=== PATIENT | female | born 1955 | race Caucasian/White ===

== ENCOUNTER → 2017-12-20 11:30 | Outpatient (CLI) | payer MEDICAID, SELFPAY | PROVIDERS: PCP Family Medicine; Visit Provider Family Medicine | DX: E11.9 Type 2 diabetes mellitus without complications (principal) | CPT/HCPCS: 36415; 83036 ==

== ENCOUNTER 2018-01-10 13:00 | Outpatient (RCR) | payer MEDICAID, SELFPAY ==
--- NOTE | 2018-01-02 13:00 | IE_ITS ---
Date: January 02, 2018 Referring: Will Gunn MD M.D. Diagnosis: Low back pain, shoulder pain P.T. Diagnosis: SUBJECTIVE: History of Present Illness: Bridgette is in attendance for today's visit with her sister in law Patti. Patient's primary complaint is that of R shoulder pain, posteriorly. Insidious onset. She reports she started using a standard walker approximately 3 months ago secondary to 2 falls in the last 6 months. She has not fallen since she has been using the walker. She also complains of chronic LBP multiple year history, worse standing and walking, better sitting. Sitting and heat relieves her symptoms. She denies any radiculopathy. Also complains of bilateral knee pain L worse than R with 2 surgical interventions for scopes with history of cortisone injections. Her primary complaint is R shoulder pain. Pain Ratin/10 currently at rest in sitting for R shoulder. 8/10 at worse in last week with AROM. Back pain in sitting 0/10, she reports this increases to 5/10 throughout the day when she is performing standing for more than 5 mins. Pain Location: Across the lumbar spine with no buttock or radicular symptoms. Knee pain along medial knee joint line bilaterally L worse than R, as well medial buckley pain. This is bilaterally R worse than L. Prior Level of Function: Quite sedentary with decreased functional mobility and easily fatigues with overall poor conditioning. Current Level of Function: Unable to perform self care activities such as washing her hair with R hand, fastening her bra, donning/doffing plant puller shirts and sweaters, night time pain affecting her sleep pattern with regards to R shoulder. She tends to sleep in L sidelying positions, but irregardless, this does aggravate her shoulder pain. Pain with lift and carrying. Pain with prolonged standing greater than 5 mins with regards to low back pain, pain with meal preparation. Previous Treatment: None. Social: Lives at [facility], independent living, but does have a worker come into her apartment to help clean. Comorbidities: Diabetes, high blood pressure, EPILEPSY, benign brain tumor, patient is mentally impaired. Falls in the last year: ____ No __X__Yes - How many? __2__ - (if over 2, balance SM needs to be completed) Reported hospitalizations in the last year - __X__ No ____ Yes - Dates of admission/reason: Medications: Refer to her list in EMR Quality of Life: ____ Excellent __X__ Good ____ Fair ____ Poor Standardized Measures: DASH score: __31%__ MOLBPDQ: __46%__ OBJECTIVE: Posture: Morbidly obese female. Adequate lumbar lordosis and level iliac crest. She does tend to assume a forwardly flexed posture of thoracic spine with mild kyphosis and protracted scapula with forward head. Observation: (behavior, atrophy, skin color, etc.) Patient presents with labored breathing after performing simple transfers on/off the plinth. This appears to be quite an effort for her. No significant swelling, mild genu valgus bilaterally. Gait: Independent with use of standard walker. She required verbal cues for correct use of the walker to avoid advancing and resting on its posterior 2 legs and tipping it forward to get 4 points of contact. Also had to lower this 2 settings as it was excessively high for her causing excessive elbow flexion and shoulder extension. We did trial a front wheeled walker, which was much easier for her to maneuver with, as she was able to walk with good jesu and step through pattern. Palpation: Hypersensitive with palpation in all locations of testing. Most notable posterior cuff, infraspinatus, teres minor on the R, (-) L. (+) pain with palpation anterior cuff bilaterally R greater than L. Pain with palpation throughout bilateral medial knee joint line and superior medial tibia, spanning down along the posterior tib bilaterally, painfree with palpation through lumbar paraspinals and buttock musculature. ROM: Cervical spine ROM WFL with no reproduction of shoulder pain. Rotation 65 -70 degrees bilaterally, flexion 35, extension 15-20, sidebending hypomobile at 15 degrees bilaterally. L-spine AROM forward flexion 6 fingertips to floor painfree, extension 15 degrees with mild pressure pain reported in central low back. Sidebending WNL bilaterally painfree. Rotation 70 degrees in both directions with mild pain at end range. GH joint ROM flexion 150 L, 90 degrees R with scapular hike and pain, AA 165 L, 120 R, passively 130 R with pain at end range. IR S1 R with pain, T8 L painfree , ER T1 actively L. The patient reaches occiput actively R, passive to 70 with pain at end range. Elbow flexion/extension WNL. Knee flexion 105 degrees R, 110 L, AA 110-115 respectively. Strength: Gross functional strength unable to perform sit to stand transfer without use of hands on arm rest, 4-/5 bilateral quad and hamstring. Hip flexion 4/5 R, 4+/5 L. GH joint strength IR 4+/5 bilaterally with pain on the R, ER 4-/5 R with pain, 4 +/5 L painfree. Flexion/abduction 3+/5 R with pain, 4/5 L painfree. Bicep/tricep 4/5 bilaterally. Neuro: Patient reports decreased sensation throughout bilateral stocking glove distribution likely stemming from diabetic neuropathy. Reports UE sensation WNL to light touch. Balance: (-) Romberg, Timed Up and Go with use of standard walker 16.8 seconds. Special Tests: (+) empty can, (-) Hawkin's Ross, (+) Hornblower's, (-) belly compression, (-) Speeds', (-) dural tension testing with slump test and SLR, (-) quadrant compression testing lumbar spine. Treatment: IE: [id number] Therapeutic procedures ([id number]). Patient education in a home program focusing on some passive pendulum exercises and scapular retraction for postural correction. She will continue use of heat as this has been offering symptom reduction. Direct treatment time: 60 mins Total treatment time: 60 mins ASSESSMENT: Patient is a 62 year-old female, referred for PT services with the diagnosis of chronic LBP and R shoulder pain. Patient presents with clinical signs and symptoms consistent with posterior cuff tendinitis as well as likely osteoarthritis of bilateral knees and DJD/DDD of lumbar spine with poor core stability, as demonstrated by the following impairment level findings: Impaired joint mobility, motor function, muscle performance and ROM associated with impaired posture, connective tissue dysfunction and localized inflammation. Impairments are contributing to the following functional limitations: Unable to perform self care activities such as washing her hair with R hand, fastening her bra, donning/doffing plant puller shirts and sweaters, night time pain affecting her sleep pattern with regards to R shoulder. She tends to sleep in L sidelying positions, but irregardless, this does aggravate her shoulder pain. Pain with lift and carrying. Pain with prolonged standing greater than 5 mins with regards to low back pain, pain with meal preparation. Patient is a good PT candidate for resolution of posterior cuff pain. Do feel she would be an excellent candidate for aquatic therapy for overall strengthening and conditioning, which she is in agreement with, once we get her shoulder symptoms a little more manageable. Would like to progress with postural correction exercises along with core stabilization and general LE strengthening. Patient is assessed as: ____ Low 10461 __X__ Moderate 17710 ____ High 47295 complexity, based on the following: History: (list): x See comorbidities and social history. Examination: (list): x See above for functional limitations and impairments. Presentation: Stable . x Evolving Unstable Decision-Making: Low complexity X Moderate complexity High complexity % Disability based on standardized measures. __X__ Patient requires skilled PT intervention to remediate the above functional limitations to return to: __X__ Improve QOL ____ Other: Prognosis: ____ Excellent ____ Good ___X_ Fair ____ Poor STG: __4__ weeks. 1: Decrease pain by 25%. 2: Patient independent with HEP. 3: Improve R GH joint flexion to greater than 120 degrees. LTG: __12__ weeks. 1: Patient independent in a self maintenance program 2: Decrease DASH to less than 20%. PLAN: Patient to be seen 2 x per week, for 12 weeks, adjusting frequency of visits per patient symptoms and response to treatment. Treatment to include: Thermal ultrasound to posterior cuff followed by Manual therapy - [id number]: R GH joint lateral distraction, caudal glides, soft tissue mobilization to the posterior cuff, scap stab and rotator cuff strengthening, postural correction. Continue use of moist heat post treatment. Also consider use of KT tape for rotator cuff pathology. Patient is in agreement with this plan and will be discharged when goals have been met. Thank you for this referral. Please do not hesitate to contact me with any questions or concerns regarding this patient's plan of care.
--- NOTE | 2018-01-07 14:37 | PTTR_ITS ---
DATE: 01/07/18 SUBJECTIVE: Bridgette states that she has yet to notice any improvements. She continues to c/o shld pain. OBJECTIVE: Manual therapy: ([id number]). mobilizations of right Gh jt including posterior and inferior glides, caudal and lateral distractions, P/AAROM. CFM over anterior and posterior cuffs. STM t /o upper trap, levator scap and posterior shld including PRT's of infraspinatus and teres region. Myofascial telescoping t/o anterior and posterior shld. * x HEP review: * x Ultrasound - (x 8 mins) - [id number]: to 50% pulsed to posterior cuff at 1.1 w/cm2, 3 MHZ. She ended with MHP to shld x 10 min in seated position. Direct treatment time: 35 min Total treatment time: 45 min.
--- NOTE | 2018-01-10 09:22 | PTTR_ITS ---
DATE: 01/10/18 SUBJECTIVE: Bridgette enters the clinic today c/o chest pain that radiates to her upper back/ right periscapular region. She admitted to eating her lunch really fast, as her ride was ready to pick her up and she was running late. She continues to c/o constant right shld pain. OBJECTIVE: Manual therapy: ([id number]). STM t/o right upper trap, levator scap and periscapular region. CFM over posterior cuff. I also worked into her deltoid region. She went into semi reclined position and received mobilizations of right GH jt including distractions, inferior and posterior glides as well as P/AAROM. CFM over anterior cuff. She performed some scap retraction 10x 5 sec. I then applied kinesiotape for RTC using 2 Y strips. She ended with MHP x 10 min. Vitals monitored and recorded on flowsheet. Her BP was 147/69. Complete resolution of chest pain once up moving around. Seems to have some sort of indigestion/ diaphragm spasm. Direct treatment time: 30 min Total treatment time: 40 min
--- NOTE | 2018-01-17 15:26 | NT_ITS ---
01/17/18 No show for today's scheduled PT appointment. Lisa Bermudez, [employer]ER
== END 2018-01-18 23:59 | disposition home or self-care (01) ==
LOC: PT 13:00
PROVIDERS: PCP Family Medicine; Referring Provider Family Medicine; Visit Provider Family Medicine
DX: M25.511 Pain in right shoulder (principal); M54.5 Low back pain
CPT/HCPCS: 97035; 97110; 97140; 97162

== ENCOUNTER 2018-07-12 10:12 | Outpatient (CLI) | payer MEDICAID, SELFPAY ==
[2018-07-12 13:27] LABS: BUN 24 mg/dL (7-18); CREATININE 1.13 mg/dL (0.55-1.02); Calcium 8.9 mg/dL (8.5-10.1); Chloride 107 mmol/L (98-107); Estimated GFR 48.48 (mL/min/1.73m2); Glucose 103 mg/dL (70-100); Potassium 4.4 mmol/L (3.5-5.1); Sodium 142 mmol/L (136-145)
[2018-07-12 13:32] LABS: Hemoglobin A1C 6.4 % (4.5-6.2)
== END 2018-07-12 10:32 ==
PROVIDERS: PCP Family Medicine; Visit Provider Family Medicine
DX: E11.65 Type 2 diabetes mellitus with hyperglycemia (principal); I10 Essential (primary) hypertension
CPT/HCPCS: 36415; 80048; 83036

== ENCOUNTER 2019-04-28 10:20 | Outpatient (CLI) | payer MEDICARE, MEDICAID, SELFPAY ==
[2019-04-28 11:41] LABS: Hemoglobin A1C 6.4 % (4.5-6.2)
[2019-04-28 13:10] LABS: Anion Gap 13.5 mmol/L (3-11); BUN 23 mg/dL (7-18); CO2 22.5 mmol/L (21.0-32.0); CREATININE 1.33 mg/dL (0.55-1.02); Calcium 8.6 mg/dL (8.5-10.1); Calculated LDL 149 mg/dL; Chloride 107 mmol/L (98-107); Cholesterol 249 mg/dL (<200); Estimated GFR 40.04 (mL/min/1.73m2); Glucose 86 mg/dL (74-106); HDL Cholesterol 71 mg/dL (40-60); Potassium 4.6 mmol/L (3.5-5.1); Sodium 143 mmol/L (136-145); Triglyceride 147 mg/dL (<150)
== END 2019-04-28 10:40 ==
PROVIDERS: PCP Family Medicine; Visit Provider Family Medicine
DX: I10 Essential (primary) hypertension (principal); E11.9 Type 2 diabetes mellitus without complications
CPT/HCPCS: 36415; 80048; 80061; 83036

== ENCOUNTER 2019-06-30 01:17 | Outpatient (CLI) | payer MEDICARE, MEDICAID, SELFPAY ==
--- NOTE | 2019-06-30 09:10 | DI.RAD_ITS ---
EXAM: XR THORACIC SPINE COMPLETE INDICATION: Thoracic spine pain, M54.6. COMPARISON: CHEST 2 VIEWS PA,LAT from 02/08/2017 CHEST 2 VIEWS PA,LAT from 02/08/2017 TECHNIQUE: 2D digital imaging was performed. FINDINGS: No compression fractures are seen. There are endplate osteophytes seen in the mid to lower thoracic spine. There is also some disc space narrowing at these levels. The visualized portions of the lung cary appear clear. IMPRESSION: Degenerative changes in the mid to lower thoracic spine.
--- NOTE | 2019-06-30 09:46 | DI.MAMMO_ITS ---
EXAM: MG MAMMO SCREENING CLINICAL HISTORY: screening, Z12.39. TECHNIQUE: Full field digital CC and MLO mammographic images were obtained with 3D tomosynthesis and utilizing computer aided detection (CAD). COMPARISON: . 2015 FINDINGS: Breast Density - Category A - Almost entirely fatty Masses/Architectural Distortion: None seen. Microcalcifications: No suspicious pleomorphic-type calcifications are seen. Skin Thickening/Nipple Retraction: None. Axilla: Unremarkable. IMPRESSION: 1. BI-RADS category 1, negative. No significant interval change with no specific features of maligna ncy noted. 2. Unless there is more urgent need, screening mammography is recommended, as per [place] [employer] guidelines. A negative radiographic report should not delay biopsy if a dominant or clinically suspicious mass is present. Up to ten percent of cancers are not identified on mammography. A negative report may reinforce clinical impression. Adenosis and dense breasts may obscure an underlying neoplasm. False positive reports average 6 to 10%. Patient will receive a letter notifying them of these results.
== END 2019-06-30 01:37 ==
PROVIDERS: PCP Family Medicine; Visit Provider Family Medicine
DX: Z12.31 Encounter for screening mammogram for malignant neoplasm of breast (principal); M54.6 Pain in thoracic spine; M47.814 Spondylosis without myelopathy or radiculopathy, thoracic region
CPT/HCPCS: 77063; 77067; 72072

== ENCOUNTER 2020-07-01 01:10 | Outpatient (CLI) | payer MEDICARE, MEDICAID, SELFPAY ==
--- NOTE | 2020-07-01 13:26 | DI.MAMMO_ITS ---
EXAM: MAMMO SCREENING CLINICAL HISTORY: screening,z12.39 TECHNIQUE: Mammograms were interpreted according to the usual protocol including computer analysis w [employer] CAD system, tomosynthesis and C-view imaging. COMPARISON: 2014 through 2019 FINDINGS: The breasts are composed of scattered fibroglandular densities, Breast Density category B. No suspicious masses or suspicious microcalcifications are seen. There are stable bilateral benign a ppearing calcifications. No skin thickening or abnormal axillary lymph nodes are seen. There has been no significant change from prior exams. IMPRESSION: BI-RADS Category 2 - Benign Findings Yearly screening mammography is recommended. Breast Density - Category B, scattered fibroglandular densities. A negative radiographic report should not delay biopsy if a dominant or clinically suspicious mass is present. Up to ten percent of cancers are not identified on mammography. A negative report may reinforce clinical impression. Adenosis and dense breasts may obscure an underlying neoplasm. False positive reports average 6 to 10%. Patient will receive a letter notifying them of these results.
== END 2020-07-01 01:11 ==
LOC: DI 01:10
PROVIDERS: PCP Nurse Practitioner; Visit Provider Nurse Practitioner
DX: Z12.31 Encounter for screening mammogram for malignant neoplasm of breast (principal)
CPT/HCPCS: 77063; 77067

== ENCOUNTER 2020-11-30 12:40 | Outpatient (REF) | payer MEDICARE, MEDICAID, SELFPAY ==
[2020-11-30 18:00] LABS: Potassium 5.3 mmol/L (3.5-5.1)
[2020-11-30 18:07] LABS: Hemoglobin A1C 8.5 % (<5.7)
[2020-12-01 20:34] LABS: Calculated LDL 124 mg/dL (<100); Cholesterol 188 mg/dL (<200); HDL Cholesterol 43 mg/dL (40-60); Triglyceride 105 mg/dL (<150)
== END 2020-11-30 12:41 | disposition home or self-care (01) ==
LOC: LBN 12:40
PROVIDERS: PCP Nurse Practitioner; Visit Provider Nurse Practitioner
DX: I10 Essential (primary) hypertension (principal); E11.43 Type 2 diabetes mellitus with diabetic autonomic (poly)neuropathy; K31.84 Gastroparesis
CPT/HCPCS: 80061; 82565; 83036; 84132

== ENCOUNTER 2021-03-14 11:56 | Emergency (ER) | payer MEDICARE, MEDICAID, SELFPAY ==
[2021-03-14 12:02] VITALS: BP 140/44; PULSE 63; RESP 18; TEMP 36.8; O2SAT 97
--- OUTSIDE RECORDS SUMMARY | 2021-03-14 12:06 | XMS_ITS ---
:1955 Author Care Team Providers Name Role Phone [facility] Internal Medicine [phone] [facility] RECORDS OTHER [phone] Allergies Code Code System Name Reaction Severity Status Onset Latex, ? ? Active ? Natural Rubber Medications Name Status Start Date Stop Date ? ? acetazolamide ER 500 mg Active ? Not avai lable capsule,extended release Advair HFA 230 mcg-21 mcg/actuation Active ? Not available aerosol inhaler amlodipine 10 mg tablet Active ? Not avai lable BD Insulin Syringe 1 mL 26 x 1/2 Active ? Not available BD Insulin Syringe Ultra-Fine 1 mL 30 Active ? Not available gauge x 1/2 benzonatate 100 mg capsule Active ? Not a vailable carbamazepine ER 400 mg tablet,extended Completed ? 03/02/2020 release,12 hr fluticasone propionate 50 mcg/actuation Completed ? 03/02/2020 nasal spray,suspension furosemide 40 mg tablet Active ? Not avai lable ipratropium 0.5 mg-albuterol 3 mg (2.5 Active ? Not available mg base)/3 mL nebulization soln Lantus U-100 Insulin 100 unit/mL Active ? Not available subcutaneous solution loperamide 2 mg capsule Active ? Not avai lable losartan 100 mg tablet Active ? Not avail able melatonin 3 mg tablet Active ? Not availa ble metformin 1,000 mg tablet Active ? Not av ailable metoprolol succinate ER 100 mg Active ? N ot available tablet,extended release 24 hr naproxen 500 mg tablet Active ? Not avail able omeprazole 20 mg capsule,delayed Active ? Not available release OneTouch Ultra Blue Test Strip Active ? N ot available polyethylene glycol 3350 17 gram/dose Active ? Not available oral powder potassium chloride ER 10 mEq Active ? Not available tablet,extended release ProAir HFA 90 mcg/actuation aerosol Active ? Not available inhaler Tab-A-Bonilla tablet Active ? Not available trazodone 100 mg tablet Active ? Not avai lable Problems Name Status Onset Date Source ? Polyp of Colon Active ? History Obesity Active ? History Obstructive Sleep Apnea Syndrome Active ? History Hypertensive Disorder Active ? History Asthma Active ? History Chronic Obstructive Lung Disease Active ? History Contact Dermatitis Active ? History Polymyalgia Rheumatica Active ? History Fibromyalgia Active ? History Urinary Incontinence Active ? History Hyperglycemia Due to Type 2 Diabetes Mellitus Active ? History Procedures None recorded. Results Lab Results None recorded. Past Encounters 03/02/2021 Smitha Rios [employer]IRAL BINDER: [address] [phone], Ph. 03/02/2020 Obstructive Sleep Apnea Syndrome Smitha Rios [employer]ER: [address] [phone], Ph. Social History Tobacco Smoking Status Never Smoker Vaccine List None recorded. Plan of Care Reminders Provider Appointments None ? ? recorded. Lab None ? ? recorded. Referral None ? ? recorded. Procedures None ? ? recorded. Surgeries None ? ? recorded. Imaging None ? ? recorded. Vitals 03/02/2020 09:30AM Office 30 Height Weight BMI Blood Pressure 172.72 cm 135.17 kg 45.3 kg/m2 124/80 mm[Hg] 02/20/2019 11:15AM Office 30 Weight Blood Pressure 125.28 kg 122/80 mm[Hg] 10/30/2017 09:00AM Office 30 Height Weight BMI Blood Pressure 172.72 cm 124.38 kg 41.7 kg/m2 140/72 mm[Hg] 08/06/2017 Height Weight Blood Pressure 172.72 cm 122.47 kg 134/70 mm[Hg] 05/15/2017 Height Weight Blood Pressure 172.72 cm 123.83 kg 138/76 mm[Hg] 04/09/2017 Height Weight Blood Pressure 172.72 cm 122.02 kg 140/62 mm[Hg] 10/10/2016 Height Weight Blood Pressure 172.72 cm 127.63 kg 118/72 mm[Hg]
--- NOTE | 2021-03-14 12:12 | W.ED.GENAD ---
Discharge Plan Disposition Patient Disposition: HOME Condition: Stable Discharge Details Clinical Impression: COVID-19 Primary Care Provider: Arlene Simon ED Provider: Donny Olivares Home Meds and New Rx's Prescriptions: Continued triamcinolone acetonide 0.1 % cream 1 applic topical BID Qty: 80 RF: 3 albuterol sulfate [ProAir HFA] 90 mcg/actuation HFA aerosol inhaler 2 puff Inhalation Q6H PRN Qty: 1 RF: 4 fluticasone propionate 50 mcg/actuation spray,suspension 50 mcg NS DAILY Qty: 2 RF: 6 (DME) insulin syringe-needle U-100 [BD Insulin Syringe Ultra-Fine] 1 mL 30 gauge x 1/2 syringe See Dose Instructions .ROUTE .MEDSUPPLY Qty: 100 RF: 4 (DME) lancets [OneTouch UltraSoft Lancets] Misc 1 ea Miscellaneous DAILY Qty: 100 RF: 0 SPACER RF: 0 Advair HFA 8 GM HFA aerosol inhaler 2 puff Inhalation BID Qty: 1 RF: 5 acetazolamide 500 mg capsule, extended release 500 mg PO DAILY Qty: 90 RF: 4 amlodipine [Norvasc] 10 mg tablet 10 mg PO QAM Qty: 90 RF: 4 metformin [Glucophage] 1,000 mg tablet 1,000 mg PO BID Qty: 180 RF: 4 metoprolol succinate 100 mg tablet extended release 24 hr 100 mg PO DAILY Qty: 90 RF: 4 naproxen 500 mg tablet 500 mg PO BID Qty: 180 RF: 4 omeprazole magnesium [Prilosec OTC] 20 mg tablet,delayed release (DR/EC) 20 mg PO DAILY Qty: 90 RF: 4 trazodone 100 mg tablet 100 mg PO QHS Qty: 90 RF: 4 nystatin 100,000 unit/gram powder 1 applic TP BID Qty: 60 RF: 3 polyethylene glycol 3350 [Miralax] 17 gram powder in packet 17 g PO DAILY Qty: 100 RF: 4 (DME) blood sugar diagnostic Strip 1 ea Miscellaneous QID Qty: 200 RF: 4 melatonin 3 mg tablet 3 mg PO HS Qty: 90 RF: 4 Lantus U-100 Insulin 100 unit/mL solution See Rx Instructions subcut BID Qty: 40 RF: 4 losartan 100 mg tablet 100 mg PO DAILY AM RF: 0 [facility]charge [facility]on[facility] (ED) Additional Instructions: Your work-up today including blood work, CTA chest, are consistent with your known COVID-19 disease. You are not requiring any supplemental oxygen. After obtaining informed consent, we provided you with a monoclonal antibody infusion. You are being sent home with a pulse oximeter, be sure to monitor your oxygen levels and return to the ER for new or evolving symptoms, or oxygen levels that are consistently below 90%. Rest, plenty of fluids to avoid dehydration, [id number] medications as directed for symptomatic control please watch for new or worsening symptoms and return to the ER for any concerns. I have placed you on the care management list to help expedite outpatient primary care follow-up. I strongly recommend that you contact your primary care provider tomorrow to discuss your ER visit, ongoing symptoms, and need for outpatient reevaluation. Discharge Data Discharge Date/Time-TO BE ENTERED AT DEPARTURE: 03/14/21 19:31 Medical Decision Making 65-year-old female, multiple comorbidities, known Covid positive, was fully vaccinated, presents to the ER for evaluation of ongoing Covid-like symptoms, home O2 noted to be low today on monitor as well as mild tachycardia after a severe coughing fit. Given her multiple comorbidities and overall presentation, will initiate both a cardiac and Covid work-up, given her tachycardia earlier today we'll go straight to a chest CTA as opposed to obtaining chest x-ray. Clinically she appears well, nontoxic, pulse in the 60s, respirations 18, afebrile, O2 sat 97% on room air. She is able to speak in full sentences and is not requiring supplemental oxygen. Laboratory values reveal a white blood cell count of 6.67 hemoglobin 9.2 hematocrit 32.2. This is lower than her baseline, denies any black tarry stools or bright red blood in her stools. Appears hemodynamically stable. Platelet count 230. D-dimer 1218, lactate minimally elevated at 1.5. Sodium 141 potassium 4.8 creatinine 1.1 with a GFR of 49.54. Glucose 138, magnesium 2.0, calcium 8.4, ferritin 45, lactate dehydrogenase minimally elevated 240, troponin less than 0.05. Patient not complaining of any chest pain, given the duration of her symptoms, I do believe a single troponin is sufficient for a rapid cardiac rule out, extremely low suspicion for ACS here. CRP is elevated at 10.06, BNP normal at 66. Procalcitonin less than 0.05. Initial laboratory values do not reveal any obvious emergent process. Patient is receiving 1 L IV fluid and will repeat her lactate test which was minimally elevated at 1.5. Patient continues to speak in full sentences, not requiring any supplemental oxygen. Awaiting CTA imaging. CTA negative for PE. Positive for bilateral infiltrates but given her known Covid test, no surprise there. Clinically she is afebrile, no elevated white count, speaking in full sentences, not required from his oxygen, O2 sats in the mid to high 90s on room air. I see no clear indication for emergent antibiotics. Had a long discussion regarding her presentation, work-up, and her overall health status. Patient does fall into the high risk category, does not require hospitalization, and therefore is a good candidate for monoclonal antibodies. We had a long discussion regarding the use of monoclonal antibodies, I answered all of the patient's questions to the best of my ability, and after this conversation using shared decision-making, patient is agreeable to moving forward with monoclonal antibodies, verbal consent obtained. I spoke with her [id number] multiple times regarding her presentation, work-up, decision to move forward with antibiotic infusion. I placed the order for the monoclonal antibody infusion protocol. Patient received the infusion, had no reaction, was observed for 60 minutes after the infusion and had no adverse reactions. Patient is requesting discharge at this time. Given her age, multiple comorbidities, patient is high risk, I did place her on the care management list to help expedite outpatient primary care follow-up. Strict discharge and return precautions were provided. Patient was provided a pulse oximeter upon discharge so she may check her oxygenation at home, instructed to return to the ER if her levels drop below 90. Patient has no additional questions or concerns. Repeat lactate of 1.4 This documentation was generated using [email or web address] system, please disregard any oddities of phrase or misspellings. Medical Records Medical records reviewed: Yes I reviewed the patient's medical records. Imaging Data Radiologic Study: Attestation: I personally reviewed and interpreted this imaging study as follows: Imaging: CT Scan Radiologist's impression: EXAM CT CHEST PE CTA CLINICAL HISTORY [ Covid +, sob/cough. ] [] TECHNIQUE Imaging Protocol: CT angiography of the chest was performed using pulmonary embolus protocol. Multi planar reconstructions were performed. CONTRAST MATERIAL Intravenous: Omnipaque 350 Contrast volume: [100] cc COMPARISON [No exams were available for comparison][] FINDINGS CHEST: PULMONARY ARTERIES: [There are no intraluminal filling defects to suggest acute pulmonary emboli.][] LUNGS: [Extensive bilateral infiltrates involving all lobes of both lungs. No associated pleural effusions.]. [No pneumothorax.] MEDIASTINUM: [There is no hilar adenopathy. However, there is subcarinal adenopathy. There is no adenopathy in anterior mediastinal fat. No axillary adenopathy. No supraclavicular adenopathy.] [] CARDIAC: [Mild cardiomegaly. No pericardial effusion.][Caliber of the thoracic aorta is within normal limits.] [] [There is no significant shift of the interventricular septum.] PARTIALLY VISUALIZED UPPERMOST ABDOMEN: [Hepatic steatosis. Cirrhotic appearing liver. Gallbladder surgically absent] OSSEOUS: [No significant osseous lesions.][]. IMPRESSION 1. [Extensive bilateral infiltrates.].[No pleural effusions.] 2. [Subcarinal adenopathy. No obvious hilar adenopathy.] 3. [No pulmonary emboli.] [Cardiomegaly. No pericardial effusion.] Lab Data Lab results reviewed: Yes I reviewed the patient's lab results. Labs: Laboratory Tests Range/Units 03/14/21 03/14/21 03/14/21 13:15 13:15 13:15 WBC (4.4-10.8) 10^3/uL 6.67 RBC (3.93-5.22) 10^6/uL 4.21 Hgb (11.2-15.7) g/dL 9.2 L Hct (36.0-46.0) % 32.2 L MCV (80-95) fL 76.5 L MCH (27.0-33.0) pg 21.9 L MCHC (32.0-36.0) % 28.6 L RDW (11.7-14.6) % 19.8 H Plt Count (130-400) 10^3/uL 230 MPV (8.0-11.0) fL 10.6 Immature Gran % 0.7 Neutrophils % 61.1 Lymphocytes % 23.5 Monocytes % 12.0 Eosinophils % 2.4 Basophils % 0.3 Nucleated RBC % % 0 Absolute Neutrophils (1.2-6.7) 10^3/uL 4.07 Absolute Lymphocytes (1.2-3.4) 10^3/uL 1.57 Absolute Monocytes (0.1-0.8) 10^3/uL 0.80 Absolute Eosinophils (0.0-0.7) 10^3/uL 0.16 Absolute Basophils (0.0-0.2) 10^3/uL 0.02 D-Dimer (<500) ng/mlFEU 1218 H VBG Lactate (0.6-1.4) mmol/L Sodium (136-145) mmol/L 141 Potassium (3.5-5.1) mmol/L 4.8 Chloride (98-107) mmol/L 108 H Carbon Dioxide (21.0-32.0) mmol/L 24.5 Anion Gap (3-11) mmol/L 8.5 BUN (7-18) mg/dL 16 Creatinine (0.55-1.02) mg/dL 1.1 H Estimated GFR/1.73 m2 (mL/min/1.73m2) 49.54 Glucose (74-106) mg/dL 138 H Calcium (8.5-10.1) mg/dL 8.4 L Ferritin (8-252) ng/mL Total Bilirubin (0.2-1.0) mg/dL 0.4 AST (15-37) U/L 61 H ALT (14-59) U/L 47 Alkaline Phosphatase (46-116) U/L 136 H Lactate Dehydrogenase (81-234) U/L Troponin I (<0.06) ng/mL C-Reactive Protein (0.0-0.3) mg/dL 10.06 H NT-Pro-B Natriuret Pep (<300) pg/mL Total Protein (6.4-8.2) g/dL 8.0 Albumin (3.4-5.0) g/dL 3.2 L Procalcitonin ng/mL Range/Units 03/14/21 03/14/21 03/14/21 13:15 13:15 13:15 WBC (4.4-10.8) 10^3/uL RBC (3.93-5.22) 10^6/uL Hgb (11.2-15.7) g/dL Hct (36.0-46.0) % MCV (80-95) fL MCH (27.0-33.0) pg MCHC (32.0-36.0) % RDW (11.7-14.6) % Plt Count (130-400) 10^3/uL MPV (8.0-11.0) fL Immature Gran % Neutrophils % Lymphocytes % Monocytes % Eosinophils % Basophils % Nucleated RBC % % Absolute Neutrophils (1.2-6.7) 10^3/uL Absolute Lymphocytes (1.2-3.4) 10^3/uL Absolute Monocytes (0.1-0.8) 10^3/uL Absolute Eosinophils (0.0-0.7) 10^3/uL Absolute Basophils (0.0-0.2) 10^3/uL D-Dimer (<500) ng/mlFEU VBG Lactate (0.6-1.4) mmol/L 1.5 H Sodium (136-145) mmol/L Potassium (3.5-5.1) mmol/L Chloride (98-107) mmol/L Carbon Dioxide (21.0-32.0) mmol/L Anion Gap (3-11) mmol/L BUN (7-18) mg/dL Creatinine (0.55-1.02) mg/dL Estimated GFR/1.73 m2 (mL/min/1.73m2) Glucose (74-106) mg/dL Calcium (8.5-10.1) mg/dL Ferritin (8-252) ng/mL 45 Total Bilirubin (0.2-1.0) mg/dL AST (15-37) U/L ALT (14-59) U/L Alkaline Phosphatase (46-116) U/L Lactate Dehydrogenase (81-234) U/L 240 H Troponin I (<0.06) ng/mL < 0.05 C-Reactive Protein (0.0-0.3) mg/dL NT-Pro-B Natriuret Pep (<300) pg/mL 66 Total Protein (6.4-8.2) g/dL Albumin (3.4-5.0) g/dL Procalcitonin ng/mL < 0.1 Range/Units 03/14/21 18:15 WBC (4.4-10.8) 10^3/uL RBC (3.93-5.22) 10^6/uL Hgb (11.2-15.7) g/dL Hct (36.0-46.0) % MCV (80-95) fL MCH (27.0-33.0) pg MCHC (32.0-36.0) % RDW (11.7-14.6) % Plt Count (130-400) 10^3/uL MPV (8.0-11.0) fL Immature Gran % Neutrophils % Lymphocytes % Monocytes % Eosinophils % Basophils % Nucleated RBC % % Absolute Neutrophils (1.2-6.7) 10^3/uL Absolute Lymphocytes (1.2-3.4) 10^3/uL Absolute Monocytes (0.1-0.8) 10^3/uL Absolute Eosinophils (0.0-0.7) 10^3/uL Absolute Basophils (0.0-0.2) 10^3/uL D-Dimer (<500) ng/mlFEU VBG Lactate (0.6-1.4) mmol/L 1.4 Sodium (136-145) mmol/L Potassium (3.5-5.1) mmol/L Chloride (98-107) mmol/L Carbon Dioxide (21.0-32.0) mmol/L Anion Gap (3-11) mmol/L BUN (7-18) mg/dL Creatinine (0.55-1.02) mg/dL Estimated GFR/1.73 m2 (mL/min/1.73m2) Glucose (74-106) mg/dL Calcium (8.5-10.1) mg/dL Ferritin (8-252) ng/mL Total Bilirubin (0.2-1.0) mg/dL AST (15-37) U/L ALT (14-59) U/L Alkaline Phosphatase (46-116) U/L Lactate Dehydrogenase (81-234) U/L Troponin I (<0.06) ng/mL C-Reactive Protein (0.0-0.3) mg/dL NT-Pro-B Natriuret Pep (<300) pg/mL Total Protein (6.4-8.2) g/dL Albumin (3.4-5.0) g/dL Procalcitonin ng/mL ECG Data Attestation: I personally reviewed and interpreted this ECG (s) as follows: Interpretation: Please see official report by Dr. Rocha. Sinus bradycardia, ventricular to 55, no STEMI. HPI General Mode of arrival: ambulatory. Date/Time Provider Initiated Documentation: 03/14/21 12:10. Limitations to Documentation: no limitations. Information obtained by: patient. HPI Narrative: This is a 65-year-old female, past medical history of morbid obesity with a BMI of 46.7, neuropathy, diabetes asthma, hypertension, chronic obstructive lung disease, reporting Covid-like symptoms that began on 03-08, tested for Covid on 03-10, and subsequently called with a positive test coming to the ER for ongoing shortness of breath and coughing. She states that she coughs so severely that time she has urinary incontinence. Specifically today her [id number] checked her vital signs after a coughing fit, heart rate was 112 and O2 sat was 90% prompting the visit to the ER. Patient denies headache, fever, chest pain, abdominal pain, nausea, vomiting, pain or swelling in her legs. Patient states that she was fully immunized for Covid. Patient has been taking [id number] medications for symptomatic control. After her positive test results, she has not initiated antibody infusions. Related Data Home Medications Medication Instructions Recorded Confirmed Advair HFA 2 puff INHALATION BID #1 inhaler 12/08/16 03/18/21 triamcinolone acetonide 0.1 % 1 applic TOPICAL BID #80 g 02/19/20 03/18/21 topical cream acetazolamide 500 mg 500 mg PO DAILY #90 tab-cap 06/18/20 03/18/21 capsule,extended release amlodipine 10 mg tablet 10 mg PO QAM #90 tab 06/18/20 03/18/21 metformin 1,000 mg tablet 1,000 mg PO BID #180 tab 06/18/20 03/18/21 metoprolol succinate 100 mg 100 mg PO DAILY #90 tab 06/18/20 03/18/21 tablet,extended release 24 hr naproxen 500 mg tablet 500 mg PO BID #180 tab 06/18/20 03/18/21 omeprazole magnesium 20 mg 20 mg PO DAILY #90 tab 06/18/20 03/18/21 tablet,delayed release trazodone 100 mg tablet 100 mg PO QHS #90 tab 06/18/20 03/18/21 nystatin 100,000 unit/gram topical 1 applic TP BID #60 gm 08/10/20 03/18/21 powder polyethylene glycol 3350 17 gram 17 g PO DAILY #100 ea 08/10/20 03/18/21 oral powder packet blood sugar diagnostic #200 strip 09/28/20 03/18/21 albuterol sulfate 90 mcg/actuation 2 puff INHALATION Q6H PRN #1 11/30/20 03/18/21 aerosol inhaler inhaler fluticasone propionate 50 50 mcg NS DAILY #2 inh 11/30/20 03/18/21 mcg/actuation nasal spray,suspension insulin syringe-needle U-100 1 mL #100 each 11/30/20 03/18/21 30 gauge x 1/2 lancets #100 ea 11/30/20 03/18/21 melatonin 3 mg tablet 3 mg PO HS #90 tab 12/07/20 03/18/21 insulin glargine 100 unit/mL See Rx Instructions SUBCUT BID #40 01/11/21 03/18/21 subcutaneous solution ml losartan 100 mg PO DAILY AM 03/14/21 03/18/21 Previous Rx's Medication Instructions Recorded triamcinolone acetonide 0.1 % 1 applic TOPICAL BID #80 g 02/19/20 topical cream acetazolamide 500 mg 500 mg PO DAILY #90 tab-cap 06/18/20 capsule,extended release amlodipine 10 mg tablet 10 mg PO QAM #90 tab 06/18/20 metformin 1,000 mg tablet 1,000 mg PO BID #180 tab 06/18/20 metoprolol succinate 100 mg 100 mg PO DAILY #90 tab 06/18/20 tablet,extended release 24 hr naproxen 500 mg tablet 500 mg PO BID #180 tab 06/18/20 omeprazole magnesium 20 mg 20 mg PO DAILY #90 tab 06/18/20 tablet,delayed release trazodone 100 mg tablet 100 mg PO QHS #90 tab 06/18/20 nystatin 100,000 unit/gram topical 1 applic TP BID #60 gm 08/10/20 powder polyethylene glycol 3350 17 gram 17 g PO DAILY #100 ea 08/10/20 oral powder packet blood sugar diagnostic #200 strip 09/28/20 albuterol sulfate 90 mcg/actuation 2 puff INHALATION Q6H PRN #1 11/30/20 aerosol inhaler inhaler fluticasone propionate 50 50 mcg NS DAILY #2 inh 11/30/20 mcg/actuation nasal spray,suspension insulin syringe-needle U-100 1 mL #100 each 11/30/20 30 gauge x 1/2 lancets #100 ea 11/30/20 melatonin 3 mg tablet 3 mg PO HS #90 tab 12/07/20 insulin glargine 100 unit/mL See Rx Instructions SUBCUT BID #40 01/11/21 subcutaneous solution ml Allergies Allergy/AdvReac Type Severity Reaction Status Date / Time cephalexin monohydrate Allergy Intermediate Skin Rash Unverified 11/30/20 11:48 [From Keflex] latex Allergy Intermediate REDNESS, Unverified 11/30/20 11:48 RASH, SWELLING lisinopril AdvReac Unknown COUGH Unverified 11/30/20 11:48 General Stated Complaint: RespSymp HEAVEN: 3 Review of Systems Constitutional Constitutional: Denies fatigue, Denies fever(s) and Denies headache(s) ENT Ears, Nose, Mouth, and Throat: Denies headache(s), Denies neck pain and Denies sore throat Cardiovascular Cardiovascular: Denies chest pain and Reports dyspnea Respiratory Respiratory: Reports cough and Reports dyspnea Gastrointestinal Gastrointestinal: Denies abdominal pain, Denies nausea and Denies vomiting Genitourinary Genitourinary: Denies dysuria Musculoskeletal Musculoskeletal: Denies back pain and Denies neck pain Integumentary/Breasts Skin/Breast: Denies rash Neurologic Neurologic: Denies headache(s) Endocrine Endocrine: Denies fatigue Hematologic/Lymphatic Hematologic/Lymphatic: Denies easy bleeding and Denies easy bruising [facility] Medical History Asthma COPD (chronic obstructive pulmonary disease) Depressive disorder Depressive disorder Diabetes mellitus type 2, controlled Diabetes type 2, uncontrolled (11/06/14) Diabetic retinopathy (~09/06/20) 09/06/20 SHIPPEE MILD B/L-KB Epilepsy Epilepsy History of colonic polyps Hypertension Morbid obesity Polymyalgia rheumatica Primary fibromyalgia syndrome Surgical History Colonoscopy - MAC Family History Mother No problems noted. Father No problems noted. Sister No problems noted. Maternal Grandfather No problems noted. Paternal Grandfather No problems noted. Maternal Grandmother No problems noted. Paternal Grandmother No problems noted. Social History Smoking/Tobacco Use Status: Former Tobacco Use tobacco type: cigarettes Tobacco: How many years used: 40 Second Hand Exposure: Yes Smoking risk assessment performed?: Yes Alcohol Intake: never Drug use: Never Substance use type: does not use Caregiver/Support person: No Household members: none Housing: house Pets and animals: No Sexually active: No Do you think of yourself as: straight/heterosexual Current gender identity: female What is your relationship status?: How often do you talk on the phone with friends or family?: three or more times per week How often do you get together with friends or relatives?: three or more times per week How often do you attend bahai or mormonism services?: 4 or more times per year Do you belong to any clubs or organized social groups?: yes Panel score (0-1 are the most socially isolated patients): 3 What type of physical activity do you participate in: decline to answer Duration: decline to answer Frequency: daily Moni/Oriental Orthodox: No preference Special moni needs: No Do you feel safe in your relationship?: Yes Exam Const General: cooperative, healthy appearing, comfortable and no acute distress Orientation: alert, awake and oriented x3 HENMT Head: normal to inspection, normocephalic and atraumatic Mouth: moist mucous membranes abnormal (Slightly dry) Throat: posterior oropharynx normal Eyes General: appearance normal, both eyes and all related structures Conjunctivae: conjunctivae normal Neck Neck: normal visual inspection, full ROM, no lymphadenopathy, no meningeal signs, trachea midline, supple and nontender Resp Effort & Inspection: normal respiratory effort, able to speak in complete sentences and cough Quality of cough: dry (mild) Auscultation: clear to auscultation bilaterally Cardio Rate: regular rate Rhythm: regular rhythm GI Inspection: obesity Palpation: soft, not firm, no guarding and nontender Back/Spine/Pelvis Back: No back tenderness Skin General skin exam: no rashes or lesions noted Neuro General: patient alert, patient awake, moves all extremities and no focal motor deficits Cognition: normal cognition Speech: speech normal Gait: normal gait Motor: muscle tone normal throughout Sensory Exam: no sensory deficits noted Extrem General: full ROM, capillary refill normal, no calf tenderness and pedal edema bilaterally non-pitting (Baseline per patient) Psych Appearance: grossly normal Mental Status: mental status grossly normal Course Vital Signs Vital signs: Vital Signs Temperature 36.8 C 03/14/21 12:02 Pulse 63 03/14/21 12:02 Respiratory Rate 18 03/14/21 12:02 Blood Pressure 140/44 L 03/14/21 12:02 Pulse Oximetry 97 03/14/21 12:02 Temperature 36.8 C 03/14/21 12:02 Temperature Source Temporal Artery Scan 03/14/21 12:02 Pulse 63 03/14/21 12:02 Respiratory Rate 18 03/14/21 12:02 Blood Pressure 140/44 L 03/14/21 12:02 Blood Pressure Position Sitting 03/14/21 12:02 Pulse Oximetry 97 03/14/21 12:02 Oxygen Delivery Method Room Air 03/14/21 12:02 Oxygen Flow Rate 0 03/14/21 12:02 Pain Level 0 03/14/21 12:02
--- NOTE | 2021-03-14 12:45 | RT.EKG_ITS ---
APPROVED REPORT Exam: Resting ECG Reason for Exam: Covid +, sob Patient Location: E HR:55 bpm ECG Measurements Heart Rate 55 AXIS AR 149 P 39 QRSd 83 QRS 9 QT 416 T 30 QTc 391 Conclusion Sinus bradycardia...rate< 60 Atrial premature complex...SV complex w/ short R-R interval Low voltage, precordial leads...precordial leads <1.0mV no STEMI, non-diagnostic EKG
[2021-03-14 13:20] LABS: Lactate 1.5 mmol/L (0.6-1.4)
[2021-03-14] MEDS: Lactated Ringers 500 ML IV (13:20)
[2021-03-14 13:24] LABS: Abs Immature Grans 0.05 10^3/uL (0.0-0.06); Absolute Basophil Count 0.02 10^3/uL (0.0-0.2); Absolute Eosinophil Count 0.16 10^3/uL (0.0-0.7); Absolute Lymphocyte Count 1.57 10^3/uL (1.2-3.4); Absolute Neutrophil Count 4.07 10^3/uL (1.2-6.7); Basophils % 0.3; Eosinophils % 2.4; HCT 32.2 % (36.0-46.0); HGB 9.2 g/dL (11.2-15.7); Immature Grans % 0.7; Lymphocytes % 23.5; MCH 21.9 pg (27.0-33.0); MCHC 28.6 % (32.0-36.0); MCV 76.5 fL (80-95); MPV 10.6 fL (8.0-11.0); Neutrophils % 61.1; Nucleated RBC 0 %; Platelet Count 230 10^3/uL (130-400); RBC 4.21 10^6/uL (3.93-5.22); RDW 19.8 % (11.7-14.6); RDW-SD 54.7 fL; WBC 6.67 10^3/uL (4.4-10.8)
[2021-03-14 14:00] LABS: D-Dimer 1218 ng/mlFEU (<500)
[2021-03-14 14:04] LABS: ALT 47 U/L (14-59); AST 61 U/L (15-37); Albumin 3.2 g/dL (3.4-5.0); Alkaline Phosphatase 136 U/L (46-116); Anion Gap 8.5 mmol/L (3-11); BUN 16 mg/dL (7-18); Bilirubin, Total 0.4 mg/dL (0.2-1.0); C-Reactive Protein 10.06 mg/dL (0.0-0.3); CO2 24.5 mmol/L (21.0-32.0); CREATININE 1.1 mg/dL (0.55-1.02); Calcium 8.4 mg/dL (8.5-10.1); Chloride 108 mmol/L (98-107); Estimated GFR 49.54 (mL/min/1.73m2); Glucose 138 mg/dL (74-106); Potassium 4.8 mmol/L (3.5-5.1); Sodium 141 mmol/L (136-145)
[2021-03-14 14:09] VITALS: BP 190/77; PULSE 60; RESP 14; TEMP 36.4; O2SAT 96
[2021-03-14 14:11] LABS: NT-proBNP 66 pg/mL (<300)
[2021-03-14 14:15] LABS: LDH 240 U/L (81-234)
[2021-03-14 14:16] LABS: Troponin I < 0.05 ng/mL (<0.06)
[2021-03-14 14:35] LABS: Procalcitonin < 0.1 ng/mL
[2021-03-14 14:39] LABS: Ferritin 45 ng/mL (8-252)
[2021-03-14] MEDS: Omnipaque 350 MG/ML 100 ML BTL IJ (15:20)
[2021-03-14] MEDS: Normal Saline - Diluent 50 ML VIAL IV (15:20)
--- NOTE | 2021-03-14 15:25 | DI.CT_ITS ---
Exam(s) CT CHEST PE CTA EXAM: CT CHEST PE CTA CLINICAL HISTORY: Covid +, sob/cough. TECHNIQUE: Imaging Protocol: CT angiography of the chest was performed using pulmonary embolus blake col. Multi planar reconstructions were performed. CONTRAST MATERIAL: Intravenous: Omnipaque 350 Contrast volume: 100 cc COMPARISON: No exams were available for comparison FINDINGS: CHEST: PULMONARY ARTERIES: There are no intraluminal filling defects to suggest acute pulmonary emboli. LUNGS: Extensive bilateral infiltrates involving all lobes of both lungs. No associated pleural effu sions.. No pneumothorax. MEDIASTINUM: There is no hilar adenopathy. However, there is subcarinal adenopathy. There is no jovanni nopathy in anterior mediastinal fat. No axillary adenopathy. No supraclavicular adenopathy. CARDIAC: Mild cardiomegaly. No pericardial effusion.Caliber of the thoracic aorta is within normal l imits. There is no significant shift of the interventricular septum. PARTIALLY VISUALIZED UPPERMOST ABDOMEN: Hepatic steatosis. Cirrhotic appearing liver. Gallbladder s urgically absent OSSEOUS: No significant osseous lesions.. IMPRESSION: 1. Extensive bilateral infiltrates..No pleural effusions. 2. Subcarinal adenopathy. No obvious hilar adenopathy. 3. No pulmonary emboli. Cardiomegaly. No pericardial effusion. RADIATION DOSE DELIVERED: 634.71mGy.cm Total DLP DATA REPOSITORY: All CT scans at this facility are submitted to the National Radiology Data Registry (NRDR) Dose Index Registry (DIR) with the [employer] (A[employer]). RADIATION OPTIMIZATION: All CT scans at this facility use at least one of these dose optimization te chniques: automated exposure control; mA and/or kV adjustment per patient size (includes targeted exa ms where dose is matched to clinical indication); or iterative reconstruction.
[2021-03-14 16:37] VITALS: BP 173/90; PULSE 56; RESP 18; TEMP 36.6; O2SAT 97
--- NOTE | 2021-03-14 17:24 | NUR.NOTE ---
pt ate a full dinner . she has had her infusion and anticipates d/c to home Nursing Note:
[2021-03-14 17:36] VITALS: TEMP 36.6
[2021-03-14 18:34] VITALS: BP 159/70; PULSE 64; RESP 16; TEMP 35.7; O2SAT 96
[2021-03-14 18:43] LABS: Lactate 1.4 mmol/L (0.6-1.4)
== END 2021-03-14 19:31 | disposition home or self-care (01) ==
PROVIDERS: Emergency Provider Physician Assistant; PCP Nurse Practitioner
DX: U07.1 COVID-19 (principal); R06.02 Shortness of breath
CPT/HCPCS: 36415; 36416; 71275; 80053; 82962; 84145; 93005; 96360; 96365; 99285; 82728; 83605; 83615; 83880; 84484; 85025; 85379; 86140; 93010; 99284; J3490

== ENCOUNTER 2021-04-29 19:04 | Outpatient (REF) | payer MEDICARE, MEDICAID, SELFPAY ==
[2021-04-29 19:21] LABS: COMMENT (LAB VIEW ONLY) 125.01 mg/dL; Microalb ug/mg Crea 22.5 ug/mg Cr
== END 2021-04-29 19:05 | disposition home or self-care (01) ==
LOC: LBN 19:04
PROVIDERS: PCP Nurse Practitioner; Visit Provider Nurse Practitioner
DX: E11.9 Type 2 diabetes mellitus without complications (principal)
CPT/HCPCS: 82043; 82570

== ENCOUNTER 2021-05-03 07:29 | Outpatient (RCR) | payer MEDICARE, MEDICAID, SELFPAY ==
--- NOTE | 2021-05-03 08:30 | HOLTER_ITS ---
APPROVED REPORT Conclusion This is a 48-hour Holter monitor ordered for palpitations Predominant rhythm was sinus with an average heart rate of 79. Minimum was 41, maximum 154 There were very rare premature ventricular contractions There were occasional atrial premature beats There were occasional brief self-limited atrial runs There was no atrial fibrillation, no high-grade AV block Sinus bradycardia and sinus arrhythmia were noted during sleep There were no apparent patient symptoms
== END 2021-05-20 23:59 | disposition home or self-care (01) ==
LOC: RT 07:29
PROVIDERS: PCP Nurse Practitioner; Visit Provider Nurse Practitioner
DX: R00.2 Palpitations (principal); I49.1 Atrial premature depolarization
CPT/HCPCS: 93227; 93225; 93226

== ENCOUNTER 2021-07-26 21:23 | Emergency (ER) | payer MEDICARE, MEDICAID, SELFPAY ==
[2021-07-26] VITALS (26 sets, daily range): BP systolic 159–193; BP diastolic 62–82; PULSE 67–120; RESP 14–25; TEMP 37.1; O2SAT 95–100
--- NOTE | 2021-07-26 21:15 | RT.EKG_ITS ---
APPROVED REPORT Exam: Resting ECG Reason for Exam: chest pain Patient Location: E HR:114 bpm ECG Measurements Heart Rate [address] 194 P 42 QRSd 84 QRS 14 QT 304 T 20 QTc 420 Conclusion Sinus tachycardia...rate> 99 Inferior infarct, old...Q >35mS, II III aVF
[2021-07-26 21:34] LABS: Abs Immature Grans 0.05 10^3/uL (0.0-0.06); Absolute Basophil Count 0.04 10^3/uL (0.0-0.2); Absolute Eosinophil Count 0.14 10^3/uL (0.0-0.7); Absolute Lymphocyte Count 2.25 10^3/uL (1.2-3.4); Absolute Monocyte Count 0.93 10^3/uL (0.1-0.8); Absolute Neutrophil Count 6.25 10^3/uL (1.2-6.7); Basophils % 0.4; Eosinophils % 1.4; HCT 31.8 % (36.0-46.0); HGB 9.2 g/dL (11.2-15.7); Immature Grans % 0.5; Lymphocytes % 23.3; MCH 21.9 pg (27.0-33.0); MCHC 28.9 % (32.0-36.0); MCV 75.5 fL (80-95); MPV 10.6 fL (8.0-11.0); Monocytes % 9.6; Neutrophils % 64.8; Nucleated RBC 0 %; Platelet Count 297 10^3/uL (130-400); RBC 4.21 10^6/uL (3.93-5.22); RDW 17.6 % (11.7-14.6); RDW-SD 48.5 fL; WBC 9.66 10^3/uL (4.4-10.8)
--- NOTE | 2021-07-26 21:35 | W.ED.GENAD ---
Discharge Plan Disposition Patient Disposition: HOME Condition: Stable Discharge Details Clinical Impression: Chest pain, Abdominal pain, Cirrhosis Primary Care Provider: Arlene Simon ED Provider: Alexei Watts Home Meds and New Rx's Prescriptions: Continued (DME) lancing device with lancets [OneTouch Delica Plus Lanc Dev] Kit See Rx Instructions .ROUTE .MEDSUPPLY Qty: 1 0RF Rx Instructions: 4 x day albuterol sulfate [ProAir HFA] 90 mcg/actuation HFA aerosol inhaler 2 puff Inhalation Q6H PRN Qty: 1 4RF fluticasone propionate 50 mcg/actuation spray,suspension 50 mcg NS DAILY Qty: 2 6RF (DME) insulin syringe-needle U-100 [BD Insulin Syringe Ultra-Fine] 1 mL 30 gauge x 1/2 syringe See Dose Instructions .ROUTE .MEDSUPPLY Qty: 100 4RF Dose Instruction: As directed Rx Instructions: One BID (DME) lancets [OneTouch UltraSoft Lancets] Misc 1 ea Miscellaneous DAILY Qty: 100 0RF Rx Instructions: Use one daily acetazolamide 500 mg capsule, extended release 500 mg PO DAILY Qty: 90 4RF amlodipine [Norvasc] 10 mg tablet 10 mg PO QAM Qty: 90 4RF metformin 1,000 mg tablet 1,000 mg PO BID Qty: 180 4RF metoprolol succinate 100 mg tablet extended release 24 hr 100 mg PO DAILY Qty: 90 4RF omeprazole magnesium [Prilosec OTC] 20 mg tablet,delayed release (DR/EC) 20 mg PO DAILY Qty: 90 4RF trazodone 100 mg tablet 100 mg PO QHS Qty: 90 4RF SPACER 0RF Rx Instructions: FOR ALBUTEROL INHALER nystatin 100,000 unit/gram powder 1 applic TP BID Qty: 60 3RF (DME) blood sugar diagnostic Strip 1 ea Miscellaneous QID Qty: 200 4RF Rx Instructions: One each qid melatonin 3 mg tablet 3 mg PO HS Qty: 90 4RF Lantus U-100 Insulin 100 unit/mL solution See Rx Instructions subcut BID Qty: 40 4RF Rx Instructions: 70 units AM and 65 units PM Diabetes E11.9 losartan 100 mg tablet 100 mg PO DAILY AM 0RF Label Comments: TAKE ONE TABLET BY MOUTH EVERY MORNING Discharge Instructions Instructions: Chest Pain (ED) Additional Instructions: Follow up with your primary care provider this week. You did have evidence of cirrhosis of the liver which they should be made aware of if you feel more ill, have worsening pain or difficulty breathing return to the emergency department Medical Decision Making 65 yo female with hx of t2dm, htn, copd only on albuterol comes in with right sided chest pain that was radiating to the right arm and shoulder that stopped while coming here since 1pm today. Denies having pain like this in the past and denies prior cardiac issues or ND. She has not had any fevers, chills, diaphoresis, vomit. She denies pain in her lower legs. She does get numbness sometime to her feet from her diabetic neuropathy. She arrives stating the pain is 5/10 and worse with deep breathing. She has clear lung sounds, and no rashes of the chest wall. She is tender on exam as well in the ruq, no lower abdomen tenderness. Multiple potential etiologies including PE, nstemi, cholecystitis, pancreatitis, will obtain labs and CT for PE as well as ct abdomen/pelvis. No tearing back pain and equal pulses in the arms so doubt dissection labs show no significant acute findings and cta of the chest shows no pe or dissection, ct abdomen/pelvis shows moderate stenosis of sma and cirrhosis otherwise no acute findings. She is now pain free on repeat exam and has no tenderness on abdominal exam. Discussed with pt options including observation admission vs delta troponin and if negative outpatient f/u with pcp. She has capacity to make her own decisions and after discussion prefers to go home if delta troponin is negative which I feel is reasonable given pain resolved with 1 dose of aspirin. Will continue to monitor, HR down to 104 now from 120. HR now in the 60's after a liter of fluid, she is not sure how much fluid she's had during the day. Second ekg and troponin without significant changes.She still wishes for discharge and given two negative troponins and pain free after aspirin feel this is reasonable. She will follow up with her pcp, return precautions given Differential Diagnosis Differential Diagnosis: PE, nstemi, cholecystitis, pancreatitis Medical Records Medical records reviewed: Yes I reviewed the patient's medical records. 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 ECG Data Attestation: I personally reviewed and interpreted this ECG (s) as follows: Prior ECG tracings: available for review Interpretation: sinus tachycardia, rate of 114, no stemi or st depressions 2nd ekg sinus, rate of 69, no acute st t wave ischemic findings HPI General Mode of arrival: EMS. Date/Time Provider Initiated Documentation: 07/26/21 21:30. Limitations to Documentation: no limitations. Information obtained by: patient. History of Present Illness 65 year old F presents to the emergency department with the chief complaint of chest pain, described as moderate, with intensity rated at 5. Quality is described as sharp, and is localized to the chest. Patient extremity. Patient started experiencing this hour(s) (8) and it has been constant. improves with No relieving factors improve symptom(s), Other factors that worsen symptoms (deep breaths) . Patient notes denies cough and fever/chills. Patient did receive the following treatments prior to arrival, none Related Data Home Medications Medication Instructions Recorded Confirmed nystatin 100,000 unit/gram topical 1 applic TP BID #60 gm 08/10/20 07/26/21 powder blood sugar diagnostic #200 strip 09/28/20 07/26/21 albuterol sulfate 90 mcg/actuation 2 puff INHALATION Q6H PRN #1 11/30/20 07/26/21 aerosol inhaler (ProAir HFA) inhaler fluticasone propionate 50 50 mcg NS DAILY #2 inh 11/30/20 07/26/21 mcg/actuation nasal spray,suspension insulin syringe-needle U-100 1 mL #100 each 11/30/20 07/26/21 30 gauge x 1/2 (BD Insulin Syringe Ultra-Fine) lancets (OneTouch UltraSoft #100 ea 11/30/20 07/26/21 Lancets) melatonin 3 mg tablet 3 mg PO HS #90 tab 12/07/20 07/26/21 losartan 100 mg tablet 100 mg PO DAILY AM 03/14/21 07/26/21 acetazolamide 500 mg 500 mg PO DAILY #90 tab-cap 04/29/21 07/26/21 capsule,extended release amlodipine 10 mg tablet (Norvasc) 10 mg PO QAM #90 tab 04/29/21 07/26/21 metformin 1,000 mg tablet 1,000 mg PO BID #180 tab 04/29/21 07/26/21 metoprolol succinate 100 mg 100 mg PO DAILY #90 tab 04/29/21 07/26/21 tablet,extended release 24 hr omeprazole magnesium 20 mg 20 mg PO DAILY #90 tab 04/29/21 07/26/21 tablet,delayed release (Prilosec OTC) trazodone 100 mg tablet 100 mg PO QHS #90 tab 04/29/21 07/26/21 lancing device with lancets kit #1 ea 06/21/21 07/26/21 (OneTouch Delica Plus Lanc Dev) insulin glargine 100 unit/mL See Rx Instructions SUBCUT BID #40 07/04/21 07/26/21 subcutaneous solution (Lantus ml U-100 Insulin) Previous Rx's Medication Instructions Recorded nystatin 100,000 unit/gram topical 1 applic TP BID #60 gm 08/10/20 powder blood sugar diagnostic #200 strip 09/28/20 albuterol sulfate 90 mcg/actuation 2 puff INHALATION Q6H PRN #1 11/30/20 aerosol inhaler (ProAir HFA) inhaler fluticasone propionate 50 50 mcg NS DAILY #2 inh 11/30/20 mcg/actuation nasal spray,suspension insulin syringe-needle U-100 1 mL #100 each 11/30/20 30 gauge x 1/2 (BD Insulin Syringe Ultra-Fine) lancets ([employer] UltraSoft #100 ea 11/30/20 Lancets) melatonin 3 mg tablet 3 mg PO HS #90 tab 12/07/20 acetazolamide 500 mg 500 mg PO DAILY #90 tab-cap 04/29/21 capsule,extended release amlodipine 10 mg tablet (Norvasc) 10 mg PO QAM #90 tab 04/29/21 metformin 1,000 mg tablet 1,000 mg PO BID #180 tab 04/29/21 metoprolol succinate 100 mg 100 mg PO DAILY #90 tab 04/29/21 tablet,extended release 24 hr omeprazole magnesium 20 mg 20 mg PO DAILY #90 tab 04/29/21 tablet,delayed release (Prilosec OTC) trazodone 100 mg tablet 100 mg PO QHS #90 tab 04/29/21 lancing device with lancets kit #1 ea 06/21/21 (OneTouch Delica Plus Lanc Dev) insulin glargine 100 unit/mL See Rx Instructions SUBCUT BID #40 07/04/21 subcutaneous solution (Lantus ml U-100 Insulin) Allergies Allergy/AdvReac Type Severity Reaction Status Date / Time cephalexin monohydrate Allergy Intermediate Skin Rash Verified 07/26/21 21:37 [From Keflex] latex Allergy Intermediate REDNESS, Verified 07/26/21 21:37 RASH, SWELLING lisinopril AdvReac Unknown COUGH Verified 07/26/21 21:37 General Stated Complaint: Chest Pain HEAVEN: 3 Review of Systems All systems reviewed & are unremarkable except as noted in HPI and below Constitutional Constitutional: Denies chills, Denies fever(s) and Denies weakness Eyes Eyes: Denies loss of vision Respiratory Respiratory: Denies cough Gastrointestinal Gastrointestinal: Denies vomiting Genitourinary Genitourinary: Denies dysuria Integumentary/Breasts Skin/Breast: Denies rash Neurologic Neurologic: Denies loss of vision and Denies weakness PFSH All Active Problems (Updated 07/26/21 @ 23:05 by Alexei Watts MD) Chest pain (Acute) Abdominal pain (Acute) Cirrhosis (Acute) Diabetes type 2, uncontrolled (Acute 11/06/14) Diabetic retinopathy (Acute ~09/06/20) 09/06/20 SHIPPEE MILD B/L-KB Diabetic neuropathy (Acute) Urinary incontinence in female (Chronic 09/11/14) stress incont Essential hypertension (Chronic 11/06/14) Diabetic gastroparesis (Chronic 01/29/15) Chronic obstructive lung disease (Chronic) Medical History (Updated 07/26/21 @ 23:05 by Alexei Watts MD) Asthma COVID-19 02/2021 Depressive disorder Epilepsy Primary fibromyalgia syndrome Surgical History Colonoscopy - MAC Family History Mother No problems noted. Father No problems noted. Sister No problems noted. Maternal Grandfather No problems noted. Paternal Grandfather No problems noted. Maternal Grandmother No problems noted. Paternal Grandmother No problems noted. Social History (Updated 06/21/21 @ 16:22 by Rocio Whalen) Smoking/Tobacco Use Status: Former Tobacco Use Tobacco: How many years used: 40 Second Hand Exposure: Yes Smoking risk assessment performed?: Yes Alcohol Intake: never Drug use: Never Substance use type: does not use Caregiver/Support person: No Household members: none Housing: house Do you need help understanding health information?: Often Pets and animals: No Sexually active: No Do you think of yourself as: straight/heterosexual Current gender identity: female What is your relationship status?: How often do you talk on the phone with friends or family?: three or more times per week How often do you get together with friends or relatives?: twice per week How often do you attend christianity or pentecostalism services?: 1-3 times per year Do you belong to any clubs or organized social groups?: yes Panel score (0-1 are the most socially isolated patients): 2 Moni/Anglican: Zoroastrian Special moni needs: No Seatbelt use: always Helmet use: No Drive intox or ride w/intox driver courier: No Do you feel safe at home: Yes Do you feel safe in your relationship?: Yes Exam Const General: no acute distress Orientation: alert HENMT Head: normal to inspection Ears: external ears normal General nose exam: external nose normal Mouth: moist mucous membranes Eyes General: appearance normal, both eyes and all related structures Neck Neck: normal visual inspection Resp Effort & Inspection: normal respiratory effort and able to speak in complete sentences Cardio Rate: regular rate GI Palpation: soft and tender Skin General skin exam: no rashes or lesions noted Neuro General: patient alert and patient oriented x3 Extrem General: normal to inspection Psych Mental Status: mental status grossly normal Course Vital Signs Vital signs: Vital Signs Temperature 37.1 C 07/26/21 21:22 Pulse 120 H 07/26/21 21:22 Respiratory Rate 22 07/26/21 21:22 Blood Pressure 187/82 H 07/26/21 21:22 Pulse Oximetry 100 07/26/21 21:22 Temperature 37.1 C 07/26/21 21:22 Temperature Source Skin 07/26/21 21:22 Pulse 120 H 07/26/21 21:22 Respiratory Rate 18 07/26/21 21:30 Respiratory Effort 07/26/21 21:30 Respiratory Depth Normal 07/26/21 21:30 Respiratory Pattern Normal 07/26/21 21:30 Blood Pressure 187/82 H 07/26/21 21:22 Blood Pressure Position Supine 07/26/21 21:22 Pulse Oximetry 100 07/26/21 21:22 Oxygen Delivery Method Room Air 07/26/21 21:22 Oxygen Flow Rate 0 07/26/21 21:22 Pain Level 5 07/26/21 21:30 Lab/Test Results Lab/Test Results: Laboratory Tests Range/Units 07/26/21 21:19 WBC (4.4-10.8) 10^3/uL 9.66 RBC (3.93-5.22) 10^6/uL 4.21 Hgb (11.2-15.7) g/dL 9.2 L Hct (36.0-46.0) % 31.8 L MCV (80-95) fL 75.5 L MCH (27.0-33.0) pg 21.9 L MCHC (32.0-36.0) % 28.9 L RDW (11.7-14.6) % 17.6 H Plt Count (130-400) 10^3/uL 297 MPV (8.0-11.0) fL 10.6 Immature Gran % 0.5 Neutrophils % 64.8 Lymphocytes % 23.3 Monocytes % 9.6 Eosinophils % 1.4 Basophils % 0.4 Nucleated RBC % % 0 Absolute Neutrophils (1.2-6.7) 10^3/uL 6.25 Absolute Lymphocytes (1.2-3.4) 10^3/uL 2.25 Absolute Monocytes (0.1-0.8) 10^3/uL 0.93 H Absolute Eosinophils (0.0-0.7) 10^3/uL 0.14 Absolute Basophils (0.0-0.2) 10^3/uL 0.04
--- NOTE | 2021-07-26 21:45 | DI.CT_ITS ---
Exam(s) CT CHEST PE ABD PELVIS W EXAM: CT CHEST PE ABD PELVIS W TECHNIQUE: CT angiography of the chest, abdomen and pelvis was performed with bolus infusion of 100 cc of Omnipaque 350. Axial CT angiography was performed with multi-slice acquisition and multi-planar and/or 3D reconstruc tions. COMPARISON: CT CT CHEST PE CTA from 03/14/2021 FINDINGS: The lungs contain multifocal linear radiodensities consistent with sequelae of prior multifocal infe ctious process noted on prior CT of March 14, 2021. No pleural effusion. No evidence of pulmonary embolic disease on the images obtained, although poor c ontrast opacification limits evaluation of segmental and subsegmental vessels period. No thoracic ao rtic dissection or aneurysm. Major branches of the thoracic aorta appear normal. No pleural effusion . No mediastinal or hilar adenopathy. Tracheobronchial tree appears intact. The liver has a nodular contour highly suggestive of cirrhosis. There is geographic decreased attenu ation in the liver and mild hepatomegaly, findings are suggestive of hepatic steatosis. No evidence of hydronephrosis or nephrolithiasis. No suspicious solid renal mass. Adrenals are unre markable in appearance. Gallbladder and bile ducts are CT normal. Pancreas is unremarkable. Spleen i s unremarkable. No abdominal aortic aneurysm or dissection. Major branches of the abdominal aorta appear christ except for calcifications and possible mild to moderate stenosis of proximal SMA. L. No abdominal or pelvi c adenopathy. Normal appendix. No significant abdominal wall hernia. No focal bowel pathology. IMPRESSION: No evidence of acute vascular abnormality of the chest, abdomen or pelvis except for possible mild to moderate stenosis of proximal SMA, presumably chronic.. Sequelae of prior pulmonary infection noted. Hepatomegaly, cirrhosis, and hepatic steatosis. RADIATION DOSE DELIVERED: 2,401.74mGy.cm Total DLP 2,401.74mGy.cm Total DLP !Error CTDIvol DATA REPOSITORY: All CT scans at this facility are submitted to the National Radiology Data Registry (NRDR) Dose Index Registry (DIR) with the [employer] (ACR). RADIATION OPTIMIZATION: All CT scans at this facility use at least one of these dose optimization te chniques: automated exposure control; mA and/or kV adjustment per patient size (includes targeted exa ms where dose is matched to clinical indication); or iterative reconstruction.
[2021-07-26 21:51] LABS: ALT 38 U/L (14-59); AST 47 U/L (15-37); Albumin 3.2 g/dL (3.4-5.0); Alkaline Phosphatase 130 U/L (46-116); Anion Gap 10.8 mmol/L (3-11); BUN 15 mg/dL (7-18); Bilirubin, Total 0.3 mg/dL (0.2-1.0); CO2 26.2 mmol/L (21.0-32.0); Calcium 8.9 mg/dL (8.5-10.1); Chloride 100 mmol/L (98-107); Glucose 243 mg/dL (74-106); Potassium 4.3 mmol/L (3.5-5.1); Sodium 137 mmol/L (136-145); Total Protein 8.4 g/dL (6.4-8.2); Troponin I < 50 ng/L (<or=60)
[2021-07-26] MEDS: Aspirin 81 MG CHEW 324 MG CH (21:54)
[2021-07-26 21:55] LABS: Source Nasal/Nares
[2021-07-26 22:08] LABS: Bilirubin, Direct 0.1 mg/dL (0.0-0.2); Bilirubin, Total 0.3 mg/dL (0.2-1.0); Lipase 133 U/L (73-393); Magnesium 1.7 mg/dL (1.8-2.4)
[2021-07-26 22:34] LABS: COVID-19 PCR Negative (Negative)
[2021-07-26] MEDS: Omnipaque 350 MG/ML 100 ML BTL IJ (22:35)
[2021-07-26] MEDS: Normal Saline Flush 10 ML SYR IVP (22:36)
--- NOTE | 2021-07-26 22:55 | DI.VRAD_ITS ---
PROCEDURE INFORMATION: Exam: CTA Chest With Contrast Exam date and time: 07/26/2021 9:47 PM Age: 65 years old Clinical indication: Other: Pleuritic right sided chest pain, ruq pain TECHNIQUE: Imaging protocol: Computed tomographic angiography of the chest with contrast. 3D rendering (Not supervised by radiologist): MIP and/or 3D reconstructed images were created by the technologist. Radiation optimization: All CT scans at this facility use at least one of these dose optimization techniques: automated exposure control; mA and/or kV adjustment per patient size (includes targeted exams where dose is matched to clinical indication); or iterative reconstruction. Contrast material: OMNIPAQUE 350; Contrast volume: 100 ml; Contrast route: INTRAVENOUS (IV); COMPARISON: CT CHEST PE CTA 03/14/2021 3:24 PM FINDINGS: Pulmonary arteries: No large pulmonary emboli. Aorta: No aortic aneurysm. No aortic dissection. Lungs: Minimal subsegmental atelectasis versus scarring No consolidation. No masses. Pleural spaces: No pneumothorax. No pleural effusion. Heart: Mild cardiomegaly. No pericardial effusion. Lymph nodes: No enlarged lymph nodes. Bones/joints: No acute fracture. Soft tissues: Unremarkable. IMPRESSION: No large pulmonary emboli or aortic dissection PROCEDURE INFORMATION: Exam: CTA Abdomen and Pelvis With Contrast Exam date and time: 07/26/2021 9:47 PM Age: 65 years old Clinical indication: Other: Pleuritic right sided chest pain, ruq pain TECHNIQUE: Imaging protocol: Computed tomographic angiography of the abdomen and pelvis with contrast material. 3D rendering (Not supervised by radiologist): MIP and/or 3D reconstructed images were created by the technologist. Radiation optimization: All CT scans at this facility use at least one of these dose optimization techniques: automated exposure control; mA and/or kV adjustment per patient size (includes targeted exams where dose is matched to clinical indication); or iterative reconstruction. Contrast material: OMNIPAQUE 350; Contrast volume: 100 ml; Contrast route: INTRAVENOUS (IV); COMPARISON: CT CHEST PE CTA 03/14/2021 3:24 PM FINDINGS: Aorta: No aortic aneurysm. No aortic dissection. Celiac trunk and mesenteric arteries: No occlusion. Calcified plaque at the origins of the celiac and superior mesenteric arteries. Short-segment moderate stenosis at the origin of the SMA Renal arteries: No occlusion or significant stenosis. Right iliac arteries: No occlusion or significant stenosis. Left iliac arteries: No occlusion or significant stenosis. Liver: Cirrhosis and fatty infiltration. No mass. Gallbladder and bile ducts: Prior cholecystectomy. No ductal dilation. Pancreas: Unremarkable. No mass. No ductal dilation. Spleen: No splenomegaly. Adrenal glands: Unremarkable. No mass. Kidneys and ureters: No hydronephrosis. Stomach and bowel: Unremarkable. No obstruction. No mucosal thickening. Appendix: No evidence of appendicitis. Intraperitoneal space: Unremarkable. No free air. No significant fluid collection. Lymph nodes: Prominent periportal lymph nodes. Urinary bladder: Unremarkable. No mass. Reproductive: Unremarkable as visualized. Bones/joints: Degenerative changes in the spine. No acute fracture. No dislocation. Soft tissues: Unremarkable. 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 Ordering:KATINA Linda MD
[2021-07-26] MEDS: Normal Saline 1,000 ML 1000 ML IV (23:23)
[2021-07-27] VITALS (21 sets, daily range): BP systolic 167–177; BP diastolic 57–81; PULSE 58–77; RESP 14–21; O2SAT 95–99
--- NOTE | 2021-07-27 | RT.EKG_ITS ---
APPROVED REPORT Exam: Resting ECG Reason for Exam: chest pain Patient Location: E HR:69 bpm ECG Measurements Heart Rate 69 AXIS WA 156 P 36 QRSd 78 QRS 7 QT 387 T 26 QTc 413 Conclusion Sinus arrhythmia...V-rate 55- 78, variation>10%
[2021-07-27 00:26] LABS: Troponin I < 50 ng/L (<or=60)
[2021-07-27] MEDS: Acetaminophen 500 MG TAB 1000 MG PO (02:43)
== END 2021-07-27 06:25 | disposition home or self-care (01) ==
PROVIDERS: Emergency Provider Emergency Medicine; PCP Nurse Practitioner
DX: R07.9 Chest pain, unspecified (principal); R10.9 Unspecified abdominal pain; R06.02 Shortness of breath; K74.60 Unspecified cirrhosis of liver
CPT/HCPCS: 36415; 71275; 74177; 80053; 83690; 87635; 93005; 96360; 99284; 99285; 82247; 82248; 83735; 84484; 85025; 93010; J3490

== ENCOUNTER 2021-08-03 02:39 | Outpatient (CLI) | payer MEDICARE, MEDICAID, SELFPAY ==
[2021-08-03 15:48] LABS: Hemoglobin A1C 7.4 % (<5.7)
[2021-08-03 17:09] LABS: ALT 44 U/L (14-59); AST 54 U/L (15-37); Albumin 3.3 g/dL (3.4-5.0); Alkaline Phosphatase 138 U/L (46-116); Anion Gap 10.6 mmol/L (3-11); BUN 16 mg/dL (7-18); Bilirubin, Total 0.3 mg/dL (0.2-1.0); CO2 24.4 mmol/L (21.0-32.0); Calcium 9.2 mg/dL (8.5-10.1); Calculated LDL 110 mg/dL (<100); Chloride 102 mmol/L (98-107); Cholesterol 180 mg/dL (<200); Glucose 191 mg/dL (74-106); HDL Cholesterol 48 mg/dL (40-60); Potassium 4.9 mmol/L (3.5-5.1); Sodium 137 mmol/L (136-145); Total Protein 7.6 g/dL (6.4-8.2); Triglyceride 111 mg/dL (<150)
[2021-08-03 17:27] LABS: COMMENT (LAB VIEW ONLY) 29.28 mg/dL
[2021-08-03 17:30] LABS: Microalb ug/mg Crea 560.5 ug/mg Cr
[2021-08-04 10:04] LABS: HBs Antibody, Qual Negative (See Note); HBs Antibody, Quant 5.7 mIU/mL (See Note); Hepatitis B Core Antibody Negative (Negative); Hepatitis B surface Ag Negative (Negative); Hepatitis C Ab w Rflx HCV PCR Negative (Negative)
[2021-08-04 10:13] LABS: Hepatitis A Antibody IgM Negative (Negative); Hepatitis B Core Antibody Negative (Negative); Hepatitis B surface Ag Negative (Negative); Hepatitis C Ab w Rflx HCV PCR Negative (Negative)
== END 2021-08-03 02:40 | disposition home or self-care (01) ==
LOC: LBO 02:39
PROVIDERS: PCP Nurse Practitioner; Visit Provider Nurse Practitioner
DX: E11.65 Type 2 diabetes mellitus with hyperglycemia (principal); I10 Essential (primary) hypertension; K74.60 Unspecified cirrhosis of liver
CPT/HCPCS: 80053; 80061; 86704; 86706; 86709; 86803; 87340; 82043; 82570; 83036

== ENCOUNTER 2021-08-11 01:43 | Outpatient (CLI) | payer MEDICARE, MEDICAID, SELFPAY ==
--- NOTE | 2021-08-11 15:00 | ETT_ITS ---
APPROVED REPORT Exam: Exercise Treadmill Patient Location: Out-Patient Room/Bed: Stress Nurse: Rocio Ji RN Ordering Provider:SAMMI ROBIN, Contact Number: [phone] BMI: 50.17 Baseline Rhythm: Sinus Arrhythmia Indications: CHEST PAIN Medical History Medical History: DM II, Obesity, HTN, COPD, Asthma, Former smoker, Fibromyalgia Cardiac Medications: Albuterol sulfate, Insulin glargine, Amlodipine, Losartan, Metformin, Metoprolol succinate Allergies: Cephalexin, Latex, Lisinopril Cardiac Risk Factors: FHX of CAD, HTN, Diabetes (non-insulin), Smoking (former), Asthma, COPD, Obesit y Previous Cardiac Procedures: None Pretest Chest Pain Characteristics: No chest pain Exercise History: Sedentary Physical Disabilities: Legs (unsteady gait) Lung Sounds: Clear to auscultation, Clear to auscultation Heart Sounds: Irregular Stress Test Details Test: Exercise stress testing was performed using a Paolo protocol. Rest Stress HR Resting HR Supine: 80 bpm Max Heart Rate (APMHR): 153 bpm Resting HR Standin bpm Target HR (85% APMHR): 130 bpm Max HR Achieved: 135 bpm % of APMHR: 88 Recovery HR: 83 bpm HR response to stress: Accelerated HR response to stress Comment: Patient withheld all medications for 24 hrs prior to test BP Resting BP Supine: 160/74 mmHg Resting BP Standin/72 mmHg Max BP: 192/78 mmHg Recovery BP: 182/74 mmHg BP response to stress: Normal blood pressure response to stress. Comment: Hypertensive at baseline. Unable to obtain BP at 1 min post exercise ECG Resting ECG: Sinus Arrhythmia Ectopy: None Comment: period of tachycardia prior to stress test when patient moved towards treadmill, self limiti ng. Stress ECG: Sinus Arrhythmia/Tachycardia ST Change: No significant ST segment changes noted Arrhythmia: None Recovery ECG: Sinus Arrhythmia/Tachycardia Recovery ST Change: No significant ST segment changes noted Recovery Arrhythmia: None Clinical Reason for Termination: Fatigue, Chest pain/Anginal equivalent, Dizziness Stress Symptoms: Chest pain, Dyspnea, General Fatigue Exercise duration: 1 min34 sec Highest Stage Reached: Stage 1: 1.7 mph at 10% grade. Exercise capacity: 3.6 METs Lackey Treadmill Score: -2 Rate Pressure Product: [id number] Stress ECG Conclusion 1. The resting electrocardiogram was within normal limits 2. Patient exercised on the Paolo protocol for 1 minute and 34 seconds, poor exercise tolerance. She completed a workload of 3.6 METS 3. Accelerated heart rate response to exercise suggests deconditioning. The patient achieved 88% of predicted heart rate for age. Normal blood pressure response to exercise. Resting hypertension 4. The electrocardiographic portion of the test was negative for myocardial ischemia Lackey Treadmill Score is -2 which is Moderate risk. Stress Test Summary STAGE Time (mins) Speed (mph) Grade (%) HR BP SYMPTOMS METS Supine 80 160/74 Standing 92 158/72 1 3 1.7 10 reports severe dyspnea, 5/10 sternal chest pain. SpO2 96% RA. 4.6 1 min recovery 130 3 min recovery 107 192/78 symptoms subsiding. 6 min recovery 83 182/74 symptoms resolved.
== END 2021-08-11 02:03 ==
PROVIDERS: PCP Nurse Practitioner; Visit Provider Nurse Practitioner
DX: R07.89 Other chest pain (principal)
CPT/HCPCS: 93016; 93018; 93017

== ENCOUNTER 2021-08-25 00:34 | Outpatient (CLI) | payer MEDICARE, MEDICAID, SELFPAY ==
--- NOTE | 2021-08-25 08:45 | DI.DEXA_ITS ---
Exam(s) XR DEXA BONE DENSITY W/WO DINA EXAM: XR DEXA BONE DENSITY W/WO DINA CLINICAL HISTORY: SCREENING FOR OSTEOPOROSIS IN POSTMENOPAUSAL WOMAN,Z78.0 TECHNIQUE: COMPARISON: No exams were available for comparison FINDINGS: Lateral Spine Image: Unremarkable. No compression deformities identified. Left hip: Total T-Score: 0 point Total Z-Score: 2.3 T- and Z-scores: Within normal limits. Lumbar Spine: Total T-Score: 2.2 Total Z-Score: 4.2 T- and Z-scores: Within normal limits. IMPRESSION: No evidence of osteoporosis.
--- NOTE | 2021-08-25 15:19 | DI.MAMMO_ITS ---
Exam(s) MAMMO SCREENING EXAM: MAMMO SCREENING CLINICAL HISTORY: screening,Z12.39 TECHNIQUE: Bilateral full field digital CC and MLO mammographic images were obtained with 3D tomosyn thesis and utilizing computer aided detection (CAD). COMPARISON: Available for comparison. FINDINGS: Masses/Architectural Distortion: None seen. Microcalcifications: No suspicious pleomorphic-type are seen. Skin Thickening/Nipple Retraction: None. IMPRESSION: 1. No significant interval change with no specific features of malignancy noted. 2. Unless there is more urgent need, screening mammography is recommended, as per [place] [employer] guidelines. BI-RADS Category 1 - Negative Breast Density - Category B - Scattered areas of fibroglandular density Breast density category C or D implies that the patient has dense breast tissue. Dense breast tissue is very common and is not abnormal but dense breast tissue can make it harder to find cancer on a ma mmogram. Also, dense breast tissue may increase their breast cancer risk. This information about the result of the mammogram report was provided to the patient to raise their awareness. Use this report when you speak with the patient about their risks for breast cancer, which includes their family hist ory. At that time, you may recommend for more screening tests (Ultrasound or MRI) as they might be us eful based on their risk. A negative radiographic report should not delay biopsy if a dominant or clinically suspicious mass is present. Up to ten percent of cancers are not identified on mammography. A negative report may reinforce clinical impression. Adenosis and dense breasts may obscure an underlying neoplasm. False positive reports average 6 to 10%. Patient will receive a letter notifying them of these results.
== END 2021-08-25 00:54 ==
PROVIDERS: PCP Nurse Practitioner; Visit Provider Nurse Practitioner
DX: Z12.31 Encounter for screening mammogram for malignant neoplasm of breast (principal); Z13.820 Encounter for screening for osteoporosis; Z78.0 Asymptomatic menopausal state
CPT/HCPCS: 77063; 77067; 77080

== ENCOUNTER 2021-12-24 17:21 | Outpatient (REF) | payer MEDICARE, MEDICAID, SELFPAY ==
[2021-12-23 23:14] LABS: COMMENT (LAB VIEW ONLY) 44.62 mg/dL; Microalb ug/mg Crea 7.4 ug/mg Cr
== END 2021-12-24 17:22 | disposition home or self-care (01) ==
LOC: LBN 17:21
PROVIDERS: PCP Nurse Practitioner; Visit Provider Nurse Practitioner
DX: E11.29 Type 2 diabetes mellitus with other diabetic kidney complication (principal); R80.9 Proteinuria, unspecified
CPT/HCPCS: 82043; 82570

== ENCOUNTER 2022-03-14 18:26 | Outpatient (CLI) | payer MEDICARE, MEDICAID, SELFPAY | END 2022-03-14 18:27 | disposition home or self-care (01) | LOC: DI.CM 18:27 | PROVIDERS: PCP Nurse Practitioner; Visit Provider Nurse Practitioner Family | CPT/HCPCS: 93010 ==

== ENCOUNTER 2022-03-14 18:58 | Emergency (ER) | payer MEDICARE, MEDICAID, SELFPAY ==
[2022-03-14 23:26] LABS: COVID-19 PCR Negative (Negative); Influenza A PCR Negative (Negative); Influenza B PCR Negative (Negative); RSV PCR Negative (Negative); Source Nasopharynx
[2022-03-14 23:54] LABS: Abs Immature Grans 0.03 10^3/uL (0.0-0.06); Absolute Basophil Count 0.05 10^3/uL (0.0-0.2); Absolute Eosinophil Count 0.07 10^3/uL (0.0-0.7); Absolute Lymphocyte Count 2.31 10^3/uL (1.2-3.4); Absolute Monocyte Count 0.85 10^3/uL (0.1-0.8); Absolute Neutrophil Count 5.79 10^3/uL (1.2-6.7); Basophils % 0.5; Eosinophils % 0.8; HCT 36.7 % (36.0-46.0); HGB 11.2 g/dL (11.2-15.7); Immature Grans % 0.3; Lymphocytes % 25.4; MCHC 30.5 % (32.0-36.0); MCV 76 fL (80-95); MPV 11.9 fL (8.0-11.0); Monocytes % 9.3; Neutrophils % 63.7; Platelet Count 281 10^3/uL (130-400); RBC 4.86 10^6/uL (3.93-5.22); RDW 19.6 % (11.7-14.6)
[2022-03-15 00:03] LABS: Albumin 3.8 g/dL (3.4-5.0); Alkaline Phosphatase 135 U/L (46-116); BUN 21 mg/dL (7-18); Bilirubin, Total 0.6 mg/dL (0.2-1.0); CREATININE 1.3 mg/dL (0.55-1.02); Calcium 9.6 mg/dL (8.5-10.1); Estimated GFR 44.79 (mL/min/1.73m2); Glucose 121 mg/dL (74-106); Potassium 4.1 mmol/L (3.5-5.1); Sodium 139 mmol/L (136-145); Total Protein 8.9 g/dL (6.4-8.2)
[2022-03-15 00:04] LABS: ALT 34 U/L (14-59); Anion Gap 10.4 mmol/L (3-11); CO2 22.6 mmol/L (21.0-32.0); Chloride 106 mmol/L (98-107); Troponin I < 50 ng/L (<or=60)
[2022-03-15 01:46] LABS: AST 56 U/L (15-37)
--- NOTE | 2022-03-15 10:30 | RT.EKG_ITS ---
APPROVED REPORT Exam: Resting ECG Reason for Exam: CHEST PAIN Patient Location: E HR:86 bpm ECG Measurements Heart Rate 86 AXIS [place] 139 P 33 QRSd 81 QRS 13 QT 348 T 29 QTc 416 Conclusion Age and gender not entered, assume 48 yo male for purpose of ECG interpretation Sinus arrhythmia...V-rate 71-103, variation>10% Probable left atrial enlargement...P >50mS, <-0.10mV V1 Probable left ventricular hypertrophy...multiple LVH criteria sinus rhythm, normal axis, normal intervals non ischemic
== END 2022-03-14 22:37 ==
PROVIDERS: Emergency Provider Emergency Medicine; PCP Nurse Practitioner Family
DX: R19.7 Diarrhea, unspecified (principal); R07.9 Chest pain, unspecified; R06.02 Shortness of breath; Z20.822 Contact with and (suspected) exposure to COVID-19
CPT/HCPCS: 80053; 87637; 93005; 96374; 99283; 99284; 84484; 85025; 93010

== ENCOUNTER 2022-12-07 10:09 | Outpatient (CLI) | payer MEDICARE, MEDICAID, SELFPAY ==
[2022-12-07 12:30] LABS: CREATININE 1.4 mg/dL (0.55-1.02); Estimated GFR 40.73 (mL/min/1.73m2); Potassium 4.6 mmol/L (3.5-5.1)
== END 2022-12-07 10:10 | disposition home or self-care (01) ==
LOC: LOS 10:10
PROVIDERS: PCP Nurse Practitioner Family; Referring Provider Nurse Practitioner Family; Visit Provider Nurse Practitioner Family
DX: I10 Essential (primary) hypertension (principal)
CPT/HCPCS: 36415; 82565; 84132

== ENCOUNTER 2023-02-27 14:45 | Emergency (ER) | payer MEDICARE, MEDICAID, SELFPAY ==
[2023-02-27] VITALS (17 sets, daily range): BP systolic 151–202; BP diastolic 61–107; PULSE 58–177; RESP 11–21; TEMP 36.4–36.6; O2SAT 97–100
--- NOTE | 2023-02-27 15:09 | ED.GENADUL_ITS ---
Discharge Plan Disposition Patient Disposition: Home Discharge Details Clinical Impression: Generalized weakness, Diabetes mellitus with hypoglycemia Primary Care Provider: Jimmy Duval ED Provider: Will Adams Home Meds and New Rx's Prescriptions: Continued (DME) lancing device with lancets [OneTouch Delica Plus Lanc Dev] Kit See Rx Instructions .ROUTE .MEDSUPPLY Qty: 1 0RF Rx Instructions: 4 x day hydrochlorothiazide 50 mg tablet 50 mg PO DAILY Qty: 90 3RF albuterol sulfate [ProAir HFA] 90 mcg/actuation HFA aerosol inhaler 2 puff Inhalation Q6H PRN Qty: 1 4RF fluticasone propionate 50 mcg/actuation spray,suspension 50 mcg NS DAILY Qty: 2 6RF (DME) lancets [OneTouch UltraSoft Lancets] Misc 1 ea Miscellaneous DAILY Qty: 100 0RF Rx Instructions: Use one daily mupirocin 2 % ointment 1 applic topical BID Qty: 22 0RF Rx Instructions: to affected area SPACER 0RF Rx Instructions: FOR ALBUTEROL INHALER nystatin 100,000 unit/gram powder 1 applic TP BID Qty: 60 3RF (DME) insulin syringe-needle U-100 [BD Insulin Syringe Ultra-Fine] 1 mL 30 gauge x 1/2 syringe See Dose Instructions .ROUTE .MEDSUPPLY Qty: 100 4RF Dose Instruction: As directed Rx Instructions: One BID insulin glargine [Lantus U-100 Insulin] 100 unit/mL solution See Rx Instructions subcut BID Qty: 122 4RF Rx Instructions: 70 units AM and 65 units PM Diabetes E11.9 acetazolamide 500 mg capsule, extended release 500 mg PO DAILY Qty: 90 4RF amlodipine [Norvasc] 10 mg tablet 10 mg PO QAM Qty: 90 4RF losartan 100 mg tablet 100 mg PO DAILY AM Qty: 90 4RF Rx Instructions: blister pack all meds melatonin 3 mg tablet 3 mg PO HS Qty: 90 4RF metformin 1,000 mg tablet 1,000 mg PO BID Qty: 180 4RF metoprolol succinate 100 mg tablet extended release 24 hr 100 mg PO DAILY Qty: 90 4RF omeprazole magnesium [Prilosec OTC] 20 mg tablet,delayed release (DR/EC) 20 mg PO DAILY Qty: 90 4RF trazodone 100 mg tablet 100 mg PO QHS Qty: 90 4RF (DME) blood sugar diagnostic Strip 1 ea Miscellaneous QID Qty: 200 4RF Rx Instructions: One each qid Discharge Instructions Instructions: Weakness (ED) Additional Instructions: You were seen in the emergency department for your weakness. Your blood work showed that your kidneys are working well. Your urine showed no sign of urinary tract infection. Please return to the emergency department if you develop fevers take any falls or develop any nausea or vomiting. Otherwise please follow-up with your primary care provider within the week. HPI General Date/Time Provider Initiated Documentation: 02/27/23 14:57 . HPI Narrative: HPI This is a 67-year-old woman with a history of diabetes arriving via paramedics in the setting of generalized weakness and reported constipation. Patient reportedly lives alone and uses a walker to ambulate at baseline. She reports that she felt weak today and could not lift herself up from bed. She also felt as if she had to go to the bathroom. En route with paramedics she had a bowel movement. She is not having any abdominal pain. She denies any falls. She gradually developed a headache yesterday. She has not taken any Tylenol for her headache today. She denies fevers chills cough chest pain shortness of breath. She denies dysuria and frequency. No rashes that she has noticed recently. She also has some pain in her right humerus. She denies any trauma to her right humerus. Exam General: Well-appearing in no acute distress speaking in complete sentences. Head: Normocephalic, atraumatic. Eye: Extraocular eye movements intact. No conjunctival injection. No scleral icterus. Ear, nose, mouth, throat: Grossly normal inspection. Normal voice, handling secretions normally. Neck: Trachea midline. Cardiovascular: Well-perfused distal extremities. Respiratory: Nonlabored respiration. Gastrointestinal: Nondistended abdomen. Musculoskeletal: No edema. Moving all 4 extremities spontaneously. Right upper extremity with no obvious deformities lacerations nor ecchymoses. Right hand warm and well-perfused. Patient is full range of motion in the right shoulder elbow right forearm in pronation and supination in the right hand across the radial, median, and ulnar nerve distributions. 2+ right radial pulse. Skin: Normal for age and race, grossly normal temperature and turgor. No acute rash. Neurologic: Alert and appropriate, no apparent acute deficits. Psychiatric: Mood and manner are appropriate. Grooming and personal hygiene are appropriate. MDM This is a chronically ill normothermic and not tachycardic but mildly hypoglycemic 67-year-old diabetic female with generalized weakness concerning for multiple etiologies. Patient does endorse a cough and based on her elevated BMI and limited mobility she certainly could have a pneumonia though she is not febrile nor hypoxic. I considered sepsis however patient's vital signs are not consistent so I did not empirically treat with antibiotics nor assess a lactate nor draw blood cultures. Patient was seen on arrival when her fingerstick blood glucose was 57. I gave her a spoonful of peanut butter and she was also given some orange juice. She does endorse a 3 out of 10 generalized headache which she reports is similar to prior episodes for which she will receive acetaminophen. Her headache was not sudden in onset to suggest subarachnoid hemorrhage. No fevers so doubt meningitis and I do not feel that the patient requires a lumbar puncture. Not altered to suggest encephalitis. No focal neurological deficits to suggest CVA so I do not feel that the patient requires an MRI nor would she be a candidate for tPA. No tonic-clonic activity to suggest seizure so no indication for EEG. Of note patient does have history of probable epilepsy for which she follows with neurology at [facility]. She also reportedly has an uncertain type of idiopathic intracranial hypertension. She has been followed by ophthalmology for her idiopathic intracranial hypertension. No chest pain nor vomiting to suggest ACS. If patient's labs are reassuring she will require an ambulatory trial. At baseline she walks with a walker. If she cannot ambulate she may require hospitalization given that she lives alone. She does not endorse dysuria nor frequency however given change from baseline will obtain a urinalysis to assess for urinary tract infection. Concerning her right humerus pain she has no signs of any obvious trauma however based on her age will obtain radiographs. No rash to arm to suggest zoster. No pain out of proportion to suggest necrotizing soft tissue infection. 4:25 PM CBC lacks anemia thrombocytopenia and leukocytosis. Hypoglycemia improved in the ED. 5:41 PM Reassuring normal TSH. Comprehensive metabolic panel with no JOSUÉ. No hypoglycemia. No significant LFT abnormalities. No acute electrolyte abnormalities. Normal reassuring magnesium. Flu COVID RSV all negative. Chest x-ray reassuring. Right humerus film unremarkable. We will complete a p.o. trial. 6:34 PM Urinalysis nitrite leukoesterase negative not consistent with UTI. Patient was able to ambulate in the ED and tolerated p.o. trial. We will proceed with empiric trial of discharge with expectant outpatient management. Given her morbid obesity increased weakness is not unexpected and patient may or may not benefit from physical therapy but will defer this decision to her primary care provider. She may also benefit from home health and care management. I have asked health community chest officer Ana to have the patient seen by her primary care in 1 week. Chronic conditions affecting the care of the patient: Diabetes morbid obesity History obtained from an outside historian: N/A External record review: [facility] EMR [Diagnostic interpretations performed by me:] [Per my independent interpretation EKG shows:] Narrow complex normal sinus rhythm at a rate of 74. Normal axis. Intervals wi thin normal limits. No ST segment abnormalities. No T wave inversions. Appears similar to prior dated last year. Medications: N/A Social determinants of health affecting disposition: Lives alone Management discussed with: N/A Treatment/interventions considered: Hospitalization but deferred given patient passed p.o. and ambulatory trial Response to therapies provided: No recurrent weakness in the emergency department Related Data Home Medications Medication Instructions Recorded Confirmed nystatin 100,000 unit/gram topical 1 applic topical BID Intertrigo 08/10/20 12/19/22 powder #60 grams albuterol sulfate 90 mcg/actuation 2 puff inhalation Q6H PRN ##1 11/30/20 12/19/22 aerosol inhaler (ProAir HFA) fluticasone propionate 50 50 mcg NS DAILY #2 inhalations 11/30/20 12/19/22 mcg/actuation nasal spray,suspension lancets (VIPorbit SoftwareTouch UltraSoft #100 ea 11/30/20 12/19/22 Lancets) lancing device with lancets kit #1 ea 06/21/21 12/19/22 (VIPorbit SoftwareTouch Delica Plus Lancing Device kit) insulin syringe-needle U-100 1 mL #100 ea 08/05/21 12/19/22 30 gauge x 1/2 (BD Insulin Syringe Ultra-Fine) mupirocin 2 % topical ointment 1 applic topical BID #22 grams 08/23/21 12/19/22 insulin glargine 100 unit/mL See Rx Instructions subcut BID 05/01/22 12/19/22 subcutaneous solution (Lantus #122 mL U-100 Insulin) acetazolamide 500 mg 500 mg PO DAILY #90 tab-caps 08/04/22 12/19/22 capsule,extended release amlodipine 10 mg tablet (Norvasc) 10 mg PO QAM #90 tabs 08/04/22 12/19/22 losartan 100 mg tablet 100 mg PO DAILY AM #90 tabs 08/04/22 12/19/22 melatonin 3 mg tablet 3 mg PO HS #90 tabs 08/04/22 12/19/22 metformin 1,000 mg tablet 1,000 mg PO BID #180 tabs 08/04/22 12/19/22 metoprolol succinate 100 mg 100 mg PO DAILY #90 tabs 08/04/22 12/19/22 tablet,extended release 24 hr omeprazole magnesium 20 mg 20 mg PO DAILY #90 tabs 08/04/22 12/19/22 tablet,delayed release (Prilosec OTC) trazodone 100 mg tablet 100 mg PO QHS #90 tabs 08/04/22 12/19/22 hydrochlorothiazide 50 mg tablet 50 mg PO DAILY #90 tabs 08/10/22 12/19/22 blood sugar diagnostic #200 strips 01/01/23 Previous Rx's Medication Instructions Recorded nystatin 100,000 unit/gram topical 1 applic topical BID Intertrigo 08/10/20 powder #60 grams albuterol sulfate 90 mcg/actuation 2 puff inhalation Q6H PRN ##1 11/30/20 aerosol inhaler (ProAir HFA) fluticasone propionate 50 50 mcg NS DAILY #2 inhalations 11/30/20 mcg/actuation nasal spray,suspension lancets (Univa UDuch UltraSoft #100 ea 11/30/20 Lancets) lancing device with lancets kit #1 ea 06/21/21 (OneTouch Delica Plus Lancing Device kit) insulin syringe-needle U-100 1 mL #100 ea 08/05/21 30 gauge x 1/2 (BD Insulin Syringe Ultra-Fine) mupirocin 2 % topical ointment 1 applic topical BID #22 grams 08/23/21 insulin glargine 100 unit/mL See Rx Instructions subcut BID 05/01/22 subcutaneous solution (Lantus #122 mL U-100 Insulin) acetazolamide 500 mg 500 mg PO DAILY #90 tab-caps 08/04/22 capsule,extended release amlodipine 10 mg tablet (Norvasc) 10 mg PO QAM #90 tabs 08/04/22 losartan 100 mg tablet 100 mg PO DAILY AM #90 tabs 08/04/22 melatonin 3 mg tablet 3 mg PO HS #90 tabs 08/04/22 metformin 1,000 mg tablet 1,000 mg PO BID #180 tabs 08/04/22 metoprolol succinate 100 mg 100 mg PO DAILY #90 tabs 08/04/22 tablet,extended release 24 hr omeprazole magnesium 20 mg 20 mg PO DAILY #90 tabs 08/04/22 tablet,delayed release (Prilosec OTC) trazodone 100 mg tablet 100 mg PO QHS #90 tabs 08/04/22 hydrochlorothiazide 50 mg tablet 50 mg PO DAILY #90 tabs 08/10/22 blood sugar diagnostic #200 strips 01/01/23 Allergies Allergy/AdvReac Type Severity Reaction Status Date / Time cephalexin monohydrate Allergy Intermediate Skin Rash Verified 02/27/23 16:05 [From Keflex] latex Allergy Intermediate REDNESS, Verified 02/27/23 16:05 RASH, SWELLING lisinopril AdvReac Unknown COUGH Verified 02/27/23 16:05 General Stated Complaint: [facility] HEAVEN: 3 PFSH All Active Problems (Updated 02/27/23 @ 22:02 by Will Adams MD) Generalized weakness (Acute) Diabetes mellitus with hypoglycemia (Acute) Microalbuminuria due to type 2 diabetes mellitus (Acute) Diabetes type 2, uncontrolled (Acute 11/06/14) Diabetic retinopathy (Acute ~09/06/20) 09/06/20 SHIPPEE MILD B/L-KB Diabetic neuropathy (Acute) Urinary incontinence in female (Chronic 09/11/14) stress incont Essential hypertension (Chronic 11/06/14) Diabetic gastroparesis (Chronic 01/29/15) Chronic obstructive lung disease (Chronic) Medical History Asthma COVID-19 02/2021 Depressive disorder Epilepsy Primary fibromyalgia syndrome Surgical History Colonoscopy - MAC Family History Mother No problems noted. Father No problems noted. Sister No problems noted. Maternal Grandfather No problems noted. Paternal Grandfather No problems noted. Maternal Grandmother No problems noted. Paternal Grandmother No problems noted. Social History Smoking/Tobacco Use Status: Former Tobacco Use Tobacco: How many years used: 40 Second Hand Exposure: Yes Smoking risk assessment performed?: Yes Alcohol Intake: never Drug use: Never Substance use type: does not use Caregiver/Support person: No Household members: none Housing: house Do you need help understanding health information?: Often Pets and animals: No Sexually active: No Do you think of yourself as: straight/heterosexual Current gender identity: female What is your relationship status?: How often do you talk on the phone with friends or family?: three or more times per week How often do you get together with friends or relatives?: twice per week How often do you attend pentecostal or shinto services?: 1-3 times per year Do you belong to any clubs or organized social groups?: yes Panel score (0-1 are the most socially isolated patients): 2 Duration: decline to answer Frequency: daily Moni/Yarsani: [employer] Special moni needs: No Seatbelt use: always Helmet use: No Drive intox or ride w/intox cdl truck driver: No Do you feel safe at home: Yes Do you feel safe in your relationship?: Yes Course Vital Signs Vital signs: Vital Signs Temperature 36.6 C 02/27/23 14:53 Pulse 70 02/27/23 14:53 Respiratory Rate 20 02/27/23 14:53 Blood Pressure 151/107 H 02/27/23 14:53 Pulse Oximetry 99 02/27/23 14:53 Temperature 36.6 C 02/27/23 14:53 Temperature Source Oral 02/27/23 14:53 Pulse 70 02/27/23 14:53 Respiratory Rate 20 02/27/23 14:53 Blood Pressure 151/107 H 02/27/23 14:53 Blood Pressure Position Sitting 02/27/23 14:53 Pulse Oximetry 99 02/27/23 14:53 Oxygen Delivery Method Room Air 02/27/23 14:53 Oxygen Flow Rate 0 02/27/23 14:53
--- NOTE | 2023-02-27 15:09 | DI.RAD_ITS ---
Exam(s) XR CHEST 1V IN DI DEPT EXAM: XR CHEST 1V IN DI DEPT CLINICAL HISTORY: Weakness cough TECHNIQUE: 2D digital imaging was performed. COMPARISON: No exams were available for comparison FINDINGS: LUNGS: Right upper lobe scarring. No infiltrate or pulmonary edema. No pleural abnormality seen. HEART: Normal size. AORTA: Normal diameter. BONES: Unremarkable for age. Soft tissues: Unremarkable. IMPRESSION: No acute findings. Right upper lobe scarring. DATA REPOSITORY: RADIATION DOSE DELIVERED:
--- NOTE | 2023-02-27 15:30 | RT.EKG_ITS ---
APPROVED REPORT Exam: Resting ECG Reason for Exam: Tremulous Patient Location: E HR:74 bpm ECG Measurements Heart Rate 74 AXIS [place] 145 P 54 QRSd 90 QRS 12 QT 390 T 25 QTc 434 Conclusion Sinus rhythm...normal P axis, V-rate 60- 99 Consider anterior infarct...Q >30mS in V2-V5 Narrow complex normal sinus rhythm at a rate of 74. Normal axis. Intervals within normal limits. N o ST segment abnormalities. No T wave inversions. Appears similar to prior dated last year.
--- NOTE | 2023-02-27 15:30 | DI.RAD_ITS ---
Exam(s) XR HUMERUS RT EXAM: XR HUMERUS RT CLINICAL HISTORY: Right upper arm.. TECHNIQUE: 2D digital imaging was performed. COMPARISON: CR XR DEXA BONE DENSITY W/WO DINA from 08/25/2021 FINDINGS: BONES: No acute fracture is present. No bony destructive lesion is seen. Degenerative changes seen at the AC joint. SOFT TISSUE: IV catheter at the elbow. IMPRESSION: Unremarkable radiographs of the right humerus. DATA REPOSITORY: RADIATION DOSE DELIVERED:
[2023-02-27 15:58] LABS: Abs Immature Grans 0.03 10^3/uL (0.0-0.06); Absolute Basophil Count 0.02 10^3/uL (0.0-0.2); Absolute Lymphocyte Count 0.82 10^3/uL (1.2-3.4); Absolute Monocyte Count 0.22 10^3/uL (0.1-0.8); Absolute Neutrophil Count 6.56 10^3/uL (1.2-6.7); Basophils % 0.3; HCT 38.5 % (36.0-46.0); Immature Grans % 0.4; Lymphocytes % 10.7; MCH 25.5 pg (27.0-33.0); MCHC 31.2 % (32.0-36.0); MCV 82 fL (80-95); MPV 10.9 fL (8.0-11.0); Monocytes % 2.9; Neutrophils % 85.7; Platelet Count 243 10^3/uL (130-400); RDW 15.8 % (11.7-14.6); RDW-SD 47.3 fL; WBC 7.65 10^3/uL (4.4-10.8)
[2023-02-27] MEDS: Acetaminophen 500 MG TAB 1000 MG PO (16:01)
[2023-02-27 16:31] LABS: ALT 25 U/L (14-59); AST 50 U/L (15-37); Albumin 3.5 g/dL (3.4-5.0); Alkaline Phosphatase 109 U/L (46-116); Anion Gap 10.4 mmol/L (3-11); BUN 29 mg/dL (7-18); Bilirubin, Total 0.4 mg/dL (0.2-1.0); CO2 23.6 mmol/L (21.0-32.0); CREATININE 1.4 mg/dL (0.55-1.02); Calcium 9.7 mg/dL (8.5-10.1); Chloride 104 mmol/L (98-107); Estimated GFR 40.73 (mL/min/1.73m2); Glucose 89 mg/dL (74-106); Magnesium 2.1 mg/dL (1.8-2.4); Potassium 4.4 mmol/L (3.5-5.1); Sodium 138 mmol/L (136-145); TSH (W/Ref FT4) 2.24 uIU/mL (0.36-3.74); Total Protein 8.6 g/dL (6.4-8.2)
[2023-02-27 16:34] LABS: COVID-19 PCR Negative (Negative); Influenza A PCR Negative (Negative); Influenza B PCR Negative (Negative); RSV PCR Negative (Negative)
[2023-02-27 16:36] LABS: Source NASOPHARYNX
[2023-02-27 18:26] LABS: Bilirubin Negative (Negative); Blood Negative (Negative); Clarity Clear (Clear); Glucose Negative (Negative); Ketones Negative (Negative); Leukocyte Esterase Negative (Negative); Nitrite Negative (Negative); Specific Gravity 1.025 (1.005-1.025); Urobilinogen 0.2 mg/dL (Up to 0.2); pH 5.5 (5-8)
--- NOTE | 2023-02-27 18:28 | NUR.NOTE ---
Nursing Note: ortho blood pressure was reported to DR MERINO.
--- NOTE | 2023-02-27 18:40 | NUR.NOTE ---
Referral faxed to PCP for genral weakness to be seen in 1 week. Nursing Note:
== END 2023-02-27 18:34 | disposition home or self-care (01) ==
PROVIDERS: Emergency Provider Emergency Medicine; PCP Nurse Practitioner Family
DX: R53.1 Weakness (principal); E11.65 Type 2 diabetes mellitus with hyperglycemia; K59.00 Constipation, unspecified; I10 Essential (primary) hypertension; D32.0 Benign neoplasm of cerebral meninges; Z79.4 Long term (current) use of insulin; Z20.822 Contact with and (suspected) exposure to COVID-19; Z79.899 Other long term (current) drug therapy
CPT/HCPCS: 80053; 82962; 87637; 93005; 99285; 71045; 73060; 81003; 83735; 84443; 85025; 93010; 99284

== ENCOUNTER 2023-03-01 07:57 | Emergency (ER) | payer MEDICARE, MEDICAID, SELFPAY ==
--- NOTE | 2023-03-01 08:15 | DI.CT_ITS ---
Exam(s) CT BRAIN NECK CTA EXAM: CT BRAIN NECK CTA CLINICAL HISTORY: right sided weakness. TECHNIQUE: Imaging Protocol: Axial CT angiography was performed with multi-slice acquisition and mu lti-planar and/or 3D reconstructions. CONTRAST MATERIAL: Intravenous: Omnipaque 350 contrast volume:85 mL COMPARISON: CT HEAD WITHOUT CONTRAST from 04/05/[address] CHEST PE ABD PELVIS W from 07/26/2021 FINDINGS: CT Head W/O and W: Ventricles and Extra axial spaces: Normal in size and morphology for the patient's age. Hemorrhage: None. Cerebral parenchyma: There is a 2.0 x 2.2 cm homogeneously enhancing mass in the floor of the right a nterior cranial fossa suspicious for meningioma. There is hypodensity in the surrounding white matte r. There are areas of decreased attenuation in the white matter consistent with small vessel ischemi c disease. Midline shift: None. Brainstem/Cerebellum: Normal. Calvarium: Normal. Visualized Paranasal sinuses/Mastoids: Clear. Soft Tissues: Unremarkable. Enhancement: Please see the above section under cerebral parenchyma. CTA Neck W: Common Carotid: Right: No dissection, occlusion or significant stenosis. Left: No dissection, occlusion or significant stenosis. External Carotid: Right: No occlusion or significant stenosis. Left: No occlusion or significant stenosis. Internal Carotid: There is atherosclerosis seen in the proximal internal carotid arteries. Right: No dissection, occlusion or significant stenosis. Left: No dissection, occlusion or significant stenosis. Vertebral Artery: Right: No dissection, occlusion or significant stenosis. Left: No dissection, occlusion or significant stenosis. Lung Apices: Normal. Bones: Within normal limits for the patient's age. There is straightening of the normal cervical lord osis. This may be due to muscle spasm or patient positioning. Soft Tissues: Normal. Thyroid gland: Unremarkable. CTA Brain W: Internal Carotid Arteries: Atherosclerosis is present. No aneurysm, occlusion or significant stenosi s. Anterior Cerebral Arteries: Right: No aneurysm, occlusion or significant stenosis. Left: No aneurysm, occlusion or significant stenosis. Middle Cerebral Arteries: Right: No aneurysm, occlusion or significant stenosis. Left: No aneurysm, occlusion or significant stenosis. Posterior Cerebral Arteries: Right: No aneurysm, occlusion or significant stenosis. Left: No aneurysm, occlusion or significant stenosis. Vertebral Arteries: Right: No aneurysm, occlusion or significant stenosis. Left: No aneurysm, occlusion or significant stenosis. Basilar Artery: No aneurysm, occlusion or significant stenosis. IMPRESSION: 1. No large vessel occlusion or significant stenosis on the CT angiography of the head. 2. There is a 2 x 2.2 cm homogeneously enhancing mass seen in the floor of the right anterior cranial fossa suspicious for meningioma. 3. No occlusion or significant stenosis on the CT angiography of the neck. 4. Findings were discussed with Albania Jones at 11 a.m. on 03/01/2023. RADIATION DOSE DELIVERED: Total DLP DATA REPOSITORY: All CT scans at this facility are submitted to the National Radiology Data Registry (NRDR) Dose Index Registry (DIR) with the [employer] [place] [employer] (ACR). RADIATION OPTIMIZATION: All CT scans at this facility use at least one of these dose optimization te chniques: automated exposure control; mA and/or kV adjustment per patient size (includes targeted exa ms where dose is matched to clinical indication); or iterative reconstruction.
--- NOTE | 2023-03-01 08:15 | DI.RAD_ITS ---
Exam(s) XR CHEST 2V PA LATERAL EXAM: XR CHEST 2V PA LATERAL CLINICAL HISTORY: right sided weakness TECHNIQUE: 2D digital imaging was performed of the chest. Two images were obtained. PA and lateral views were obtained. COMPARISON: CR CHEST 2 VIEWS PA,LAT from 02/08/2017 CR XR CHEST 1V IN DI DEPT from 02/27/2023 FINDINGS: MEDIASTINUM: Normal. HEART: Normal. PULMONARY VASCULATURE: Normal. LUNGS: There is unchanged scarring in the right lateral hemithorax which is stable. No focal consoli dating infiltrates are seen. PLEURAL SPACE: No pleural effusion or pneumothorax. BONE:Within normal limits for the patient's age. OTHER FINDINGS:Normal. IMPRESSION: No acute pulmonary findings. DATA REPOSITORY: RADIATION DOSE DELIVERED:
[2023-03-01] MEDS: Glucose Oral Gel 15 GM/37.5 GM TUBE PO (09:04)
[2023-03-01 09:10] LABS: Abs Immature Grans 0.02 10^3/uL (0.0-0.06); Absolute Basophil Count 0.05 10^3/uL (0.0-0.2); Absolute Eosinophil Count 0.08 10^3/uL (0.0-0.7); Absolute Lymphocyte Count 1.28 10^3/uL (1.2-3.4); Absolute Monocyte Count 0.71 10^3/uL (0.1-0.8); Absolute Neutrophil Count 6.31 10^3/uL (1.2-6.7); Basophils % 0.6; Eosinophils % 0.9; HCT 35.5 % (36.0-46.0); HGB 10.9 g/dL (11.2-15.7); Immature Grans % 0.2; Lymphocytes % 15.1; MCH 25.2 pg (27.0-33.0); MCHC 30.7 % (32.0-36.0); MCV 82 fL (80-95); Monocytes % 8.4; Neutrophils % 74.8; Platelet Count 225 10^3/uL (130-400); RBC 4.32 10^6/uL (3.93-5.22); RDW-SD 48.3 fL; WBC 8.45 10^3/uL (4.4-10.8)
[2023-03-01 09:29] LABS: ALT 30 U/L (14-59); AST 53 U/L (15-37); Albumin 3.4 g/dL (3.4-5.0); Alkaline Phosphatase 96 U/L (46-116); Anion Gap 9.3 mmol/L (3-11); BUN 34 mg/dL (7-18); Bilirubin, Total 0.3 mg/dL (0.2-1.0); CO2 23.7 mmol/L (21.0-32.0); CREATININE 1.4 mg/dL (0.55-1.02); Calcium 9.5 mg/dL (8.5-10.1); Chloride 105 mmol/L (98-107); Estimated GFR 40.73 (mL/min/1.73m2); Glucose 52 mg/dL (74-106); Lipase 108 U/L (16-77); Magnesium 2.1 mg/dL (1.8-2.4); Potassium 4.2 mmol/L (3.5-5.1); Sodium 138 mmol/L (136-145); Troponin I < 50 ng/L (<or=60)
[2023-03-01] MEDS: Dextrose 25%-Water 10 ML SYR IVP (09:32)
[2023-03-01] MEDS: DEXTROSE 5%-0.9% SALINE 1,000 ML 150 ML IV (09:46)
--- NOTE | 2023-03-01 10:00 | RT.EKG_ITS ---
APPROVED REPORT Exam: Resting ECG Reason for Exam: right sided weakness Patient Location: E HR:56 bpm ECG Measurements Heart Rate 56 AXIS [place] 181 P 32 QRSd 88 QRS 2 QT 423 T 28 QTc 409 Conclusion Bradycardia with irregular rate...V-rate 41- 63, mean < 60 Inferior infarct, old...Q >35mS, II III aVF
[2023-03-01] MEDS: Omnipaque 350 MG/ML 500 ML BTL-Imaging package IJ (10:34)
[2023-03-01 11:14] VITALS: RESP 16
[2023-03-01 11:26] LABS: Bilirubin Negative (Negative); Blood Negative (Negative); Clarity Clear (Clear); Glucose Negative (Negative); Ketones Negative (Negative); Leukocyte Esterase Negative (Negative); Nitrite Negative (Negative); Urobilinogen 0.2 mg/dL (Up to 0.2); pH 5.5 (5-8)
--- NOTE | 2023-03-01 11:47 | ED.GENADUL_ITS ---
Discharge Plan Disposition Patient Disposition: Home W/Home Health Services Condition: Stable Discharge Details Clinical Impression: Hypoglycemia Primary Care Provider: Jimmy Duval ED Provider: Nciki Blakely Home Meds and New Rx's Prescriptions: Continued (DME) lancing device with lancets [OneTouch Delica Plus Lanc Dev] Kit See Rx Instructions .ROUTE .MEDSUPPLY Qty: 1 0RF Rx Instructions: 4 x day hydrochlorothiazide 50 mg tablet 50 mg PO DAILY Qty: 90 3RF albuterol sulfate [ProAir HFA] 90 mcg/actuation HFA aerosol inhaler 2 puff Inhalation Q6H PRN Qty: 1 4RF fluticasone propionate 50 mcg/actuation spray,suspension 50 mcg NS DAILY Qty: 2 6RF (DME) lancets [OneTouch UltraSoft Lancets] Misc 1 ea Miscellaneous DAILY Qty: 100 0RF Rx Instructions: Use one daily mupirocin 2 % ointment 1 applic topical BID Qty: 22 0RF Rx Instructions: to affected area SPACER 0RF Rx Instructions: FOR ALBUTEROL INHALER nystatin 100,000 unit/gram powder 1 applic TP BID Qty: 60 3RF (DME) insulin syringe-needle U-100 [BD Insulin Syringe Ultra-Fine] 1 mL 30 gauge x 1/2 syringe See Dose Instructions .ROUTE .MEDSUPPLY Qty: 100 4RF Dose Instruction: As directed Rx Instructions: One BID acetazolamide 500 mg capsule, extended release 500 mg PO DAILY Qty: 90 4RF amlodipine [Norvasc] 10 mg tablet 10 mg PO QAM Qty: 90 4RF losartan 100 mg tablet 100 mg PO DAILY AM Qty: 90 4RF Rx Instructions: blister pack all meds melatonin 3 mg tablet 3 mg PO HS Qty: 90 4RF metformin 1,000 mg tablet 1,000 mg PO BID Qty: 180 4RF metoprolol succinate 100 mg tablet extended release 24 hr 100 mg PO DAILY Qty: 90 4RF omeprazole magnesium [Prilosec OTC] 20 mg tablet,delayed release (DR/EC) 20 mg PO DAILY Qty: 90 4RF trazodone 100 mg tablet 100 mg PO QHS Qty: 90 4RF (DME) blood sugar diagnostic Strip 1 ea Miscellaneous QID Qty: 200 4RF Rx Instructions: One each qid Held insulin glargine [Lantus U-100 Insulin] 100 unit/mL solution See Rx Instructions subcut BID Qty: 122 4RF Hold Instructions: until home health evaluation, will be changed to 20 units in the am and 10 units at bedtime Rx Instructions: 70 units AM and 65 units PM Diabetes E11.9 Discharge Instructions Instructions: Hypoglycemia in a Person with Diabetes (ED) Additional Instructions: Did not take any insulin until instructed by home health services. Your morning dose has been reduced to 20 units and your evening dose to 10 units and until further instruction by your outpatient primary care provider. Check your blood sugars 4 times daily and if needed for symptoms. You will be referred to diabetes education through your primary care provider Referrals: Jimmy Duval NP [Primary Care Provider] - Discharge Data Discharge Date/Time-TO BE ENTERED AT DEPARTURE: 03/01/23 20:28 Medical Decision Making <DOMINIC Rubin - Last Filed: 03/03/23 08:09> 67-year-old female with history of diabetes and hypoglycemia generalized weakness, right-sided weakness, right-sided weakness this morning, unsure of onset, daughter states its been intermittent over the course the past month, reportedly took her insulin this morning and did not eat, states her blood sugars have been very low over the course of the past several weeks Initial glucose of 63, received syrup by EMS, blood sugar 64, line was not placed so GlucoGel 30 g was administered, glucose 79 Fell again to 60, line initiated and D25 administered, glucose 80, D10 dropped to 40 lot MRI, given an amp of D50 Patient had CTA head and neck for right-sided weakness There is evidence of a likely frontal meningioma with some slight edema surrounding it, Dr. Lewis radiologist called to notify regarding results and recommended MRI with and without contrast which was performed that shows meningioma with some vasogenic edema Patient remains with right-sided weakness, unchanged neurological exam, persistently hypoglycemic, will warrant admission to the hospital MRI results reviewed with neurosurgery, Dr. Bowden, no recommendations for emergent intervention, no acute stroke, will give patient dinner and admit to the [facility] for observation <Nicki Blakely NP - Last Filed: 03/01/23 19:29> 67-year-old female with history of diabetes and hypoglycemia generalized wea kness, right-sided weakness, right-sided weakness this morning, unsure of onset, daughter states its been intermittent over the course the past month, reportedly took her insulin this morning and did not eat, states her blood sugars have been very low over the course of the past several weeks Initial glucose of 63, received syrup by EMS, blood sugar 64, line was not placed so GlucoGel 30 g was administered, glucose 79 Fell again to 60, line initiated and D25 administered, glucose 80, D10 dropped to 40 lot MRI, given an amp of D50 Patient had CTA head and neck for right-sided weakness There is evidence of a likely frontal meningioma with some slight edema surrounding it, Dr. Lewis radiologist called to notify regarding results and recommended MRI with and without contrast which was performed that shows meningioma with some vasogenic edema Patient remains with right-sided weakness, unchanged neurological exam, persistently hypoglycemic, will warrant admission to the hospital MRI results reviewed with neurosurgery, Dr. Bowden, no recommendations for emergent intervention, no acute stroke, will give patient dinner and admit to the hospital for observation Care of patient was received from [place] ALFARO. Record is reviewed and case is discussed again with [facility] neurology who does not feel presentation symptoms are secondary to her meningioma and does not recommend any seizure prophylaxis or steroids at this time as she is asymptomatic. She has been fed a dinner tray and her blood sugars have remained above 140. She has been safely really ambulated and is stable for discharge to home and will be referred to home health services for nursing and physical therapy. Medical Records Medical records reviewed: Yes I reviewed the patient's medical records. Lab Data Lab results reviewed: Yes I reviewed the patient's lab results. HPI <DOMINIC Rubin - Last Filed: 03/03/23 08:09> General Date/Time Provider Initiated Documentation: 03/01/23 08:27 . HPI Narrative: 67-year-old female with history of diabetes, urinary incontinence, gastroparesis COPD presents with report of weakness and hypoglycemia per EMS. Patient states she tried to get out of her chair this morning and she had right-sided weakness and was unable to stand, she slid on the floor per her daughter, she did not hit her head per patient. She did not lose consciousness. She did take her insulin and was trying to get up to eat which is when she slid down on the floor. She denies any chest pain or shortness of breath. She states she feels a little bit out of it . She states her entire right side feels weak. Her daughter tells me this is been intermittent for the past month. Patient denies any fever or chills. She denies any changes in her insulin. She does states she has been diagnosed with renal disease and has not changed her insulin dosing. Related Data Home Medications Medication Instructions Recorded Confirmed nystatin 100,000 unit/gram topical 1 applic topical BID Intertrigo 08/10/20 02/28/23 powder #60 grams albuterol sulfate 90 mcg/actuation 2 puff inhalation Q6H PRN ##1 11/30/20 03/01/23 aerosol inhaler (ProAir HFA) fluticasone propionate 50 50 mcg NS DAILY #2 inhalations 11/30/20 03/01/23 mcg/actuation nasal spray,suspension lancets (byUs UltraSoft #100 ea 11/30/20 02/28/23 Lancets) lancing device with lancets kit #1 ea 06/21/21 02/28/23 (byUs Delica Plus Lancing Device kit) insulin syringe-needle U-100 1 mL #100 ea 08/05/21 02/28/23 30 gauge x 1/2 (BD Insulin Syringe Ultra-Fine) mupirocin 2 % topical ointment 1 applic topical BID #22 grams 08/23/21 02/28/23 insulin glargine 100 unit/mL See Rx Instructions subcut BID 05/01/22 02/28/23 subcutaneous solution (Lantus #122 mL U-100 Insulin) acetazolamide 500 mg 500 mg PO DAILY #90 tab-caps 08/04/22 03/01/23 capsule,extended release amlodipine 10 mg tablet (Norvasc) 10 mg PO QAM #90 tabs 08/04/22 02/28/23 losartan 100 mg tablet 100 mg PO DAILY AM #90 tabs 08/04/22 02/28/23 melatonin 3 mg tablet 3 mg PO HS #90 tabs 08/04/22 03/01/23 metformin 1,000 mg tablet 1,000 mg PO BID #180 tabs 08/04/22 02/28/23 metoprolol succinate 100 mg 100 mg PO DAILY #90 tabs 08/04/22 02/28/23 tablet,extended release 24 hr omeprazole magnesium 20 mg 20 mg PO DAILY #90 tabs 08/04/22 02/28/23 tablet,delayed release (Prilosec OTC) trazodone 100 mg tablet 100 mg PO QHS #90 tabs 08/04/22 02/28/23 hydrochlorothiazide 50 mg tablet 50 mg PO DAILY #90 tabs 08/10/22 02/28/23 blood sugar diagnostic #200 strips 01/01/23 02/28/23 Previous Rx's Medication Instructions Recorded nystatin 100,000 unit/gram topical 1 applic topical BID Intertrigo 08/10/20 powder #60 grams albuterol sulfate 90 mcg/actuation 2 puff inhalation Q6H PRN ##1 11/30/20 aerosol inhaler (ProAir HFA) fluticasone propionate 50 50 mcg NS DAILY #2 inhalations 11/30/20 mcg/actuation nasal spray,suspension lancets (byUs UltraSoft #100 ea 11/30/20 Lancets) lancing device with lancets kit #1 ea 06/21/21 (byUs Delica Plus Lancing Device kit) insulin syringe-needle U-100 1 mL #100 ea 08/05/21 30 gauge x 1/2 (BD Insulin Syringe Ultra-Fine) mupirocin 2 % topical ointment 1 applic topical BID #22 grams 08/23/21 insulin glargine 100 unit/mL See Rx Instructions subcut BID 05/01/22 subcutaneous solution (Lantus #122 mL U-100 Insulin) acetazolamide 500 mg 500 mg PO DAILY #90 tab-caps 08/04/22 capsule,extended release amlodipine 10 mg tablet (Norvasc) 10 mg PO QAM #90 tabs 08/04/22 losartan 100 mg tablet 100 mg PO DAILY AM #90 tabs 08/04/22 melatonin 3 mg tablet 3 mg PO HS #90 tabs 08/04/22 metformin 1,000 mg tablet 1,000 mg PO BID #180 tabs 08/04/22 metoprolol succinate 100 mg 100 mg PO DAILY #90 tabs 08/04/22 tablet,extended release 24 hr omeprazole magnesium 20 mg 20 mg PO DAILY #90 tabs 08/04/22 tablet,delayed release (Prilosec OTC) trazodone 100 mg tablet 100 mg PO QHS #90 tabs 08/04/22 hydrochlorothiazide 50 mg tablet 50 mg PO DAILY #90 tabs 08/10/22 blood sugar diagnostic #200 strips 01/01/23 Allergies Allergy/AdvReac Type Severity Reaction Status Date / Time cephalexin monohydrate Allergy Intermediate Skin Rash Verified 02/27/23 16:05 [From Keflex] latex Allergy Intermediate REDNESS, Verified 02/27/23 16:05 RASH, SWELLING lisinopril AdvReac Unknown COUGH Verified 02/27/23 16:05 General Stated Complaint: [facility]Medical HEAVEN: 2 PFSH <DOMINIC Rubin - Last Filed: 03/03/23 08:09> All Active Problems (Updated 03/01/23 @ 19:16 by Nicki Blakely NP) Hypoglycemia (Acute) Diabetes mellitus with hypoglycemia (Acute) Generalized weakness (Acute) Microalbuminuria due to type 2 diabetes mellitus (Acute) Diabetes type 2, uncontrolled (Acute 11/06/14) Diabetic retinopathy (Acute ~09/06/20) 09/06/20 SHIPPEE MILD B/L-KB Diabetic neuropathy (Acute) Urinary incontinence in female (Chronic 09/11/14) stress incont Essential hypertension (Chronic 11/06/14) Diabetic gastroparesis (Chronic 01/29/15) Chronic obstructive lung disease (Chronic) Medical History Asthma COVID-19 02/2021 Depressive disorder Epilepsy Primary fibromyalgia syndrome Surgical History Colonoscopy - MAC Family History Mother No problems noted. Father No problems noted. Sister No problems noted. Maternal Grandfather No problems noted. Paternal Grandfather No problems noted. Maternal Grandmother No problems noted. Paternal Grandmother No problems noted. Social History Smoking/Tobacco Use Status: Former Tobacco Use Tobacco: How many years used: 40 Second Hand Exposure: Yes Smoking risk assessment performed?: Yes Alcohol Intake: never Drug use: Never Substance use type: does not use Caregiver/Support person: No Household members: none Housing: house Do you need help understanding health information?: Often Pets and animals: No Sexually active: No Do you think of yourself as: straight/heterosexual Current gender identity: female What is your relationship status?: How often do you talk on the phone with friends or family?: three or more times per week How often do you get together with friends or relatives?: twice per week How often do you attend confucianism or buddhism services?: 1-3 times per year Do you belong to any clubs or organized social groups?: yes Panel score (0-1 are the most socially isolated patients): 2 Duration: decline to answer Frequency: daily Moni/Christianity: Anabaptism Special moni needs: No Seatbelt use: always Helmet use: No Drive intox or ride w/intox van driver: No Do you feel safe at home: Yes Do you feel safe in your relationship?: Yes Course <DOMINIC Rubin - Last Filed: 03/03/23 08:09> Vital Signs Vital signs: Vital Signs Respiratory Rate 16 03/01/23 11:14 Respiratory Rate 16 03/01/23 11:14 Respiratory Effort Normal, Non-Labored 03/01/23 11:14 Respiratory Depth Normal 03/01/23 11:14 Respiratory Pattern Normal 03/01/23 11:14 Lab/Test Results Lab/Test Results: Laboratory Tests Range/Units 03/01/23 03/01/23 08:55 11:15 WBC (4.4-10.8) 10^3/uL 8.45 RBC (3.93-5.22) 10^6/uL 4.32 Hgb (11.2-15.7) g/dL 10.9 L Hct (36.0-46.0) % 35.5 L MCV (80-95) fL 82 MCH (27.0-33.0) pg 25.2 L MCHC (32.0-36.0) % 30.7 L RDW (11.7-14.6) % 16.0 H Plt Count (130-400) 10^3/uL 225 MPV (8.0-11.0) fL 11.0 Immature Gran % 0.2 Neutrophils % 74.8 Lymphocytes % 15.1 Monocytes % 8.4 Eosinophils % 0.9 Basophils % 0.6 Nucleated RBC % (0.0-0.3) % 0.0 Absolute Neutrophils (1.2-6.7) 10^3/uL 6.31 Absolute Lymphocytes (1.2-3.4) 10^3/uL 1.28 Absolute Monocytes (0.1-0.8) 10^3/uL 0.71 Absolute Eosinophils (0.0-0.7) 10^3/uL 0.08 Absolute Basophils (0.0-0.2) 10^3/uL 0.05 Sodium (136-145) mmol/L 138 Potassium (3.5-5.1) mmol/L 4.2 Chloride (98-107) mmol/L 105 Carbon Dioxide (21.0-32.0) mmol/L 23.7 Anion Gap (3-11) mmol/L 9.3 BUN (7-18) mg/dL 34 H Creatinine (0.55-1.02) mg/dL 1.4 H Est GFR (CKD-EPI 2020) (mL/min/1.73m2) 40.73 Glucose (74-106) mg/dL 52 L Calcium (8.5-10.1) mg/dL 9.5 Magnesium (1.8-2.4) mg/dL 2.1 Total Bilirubin (0.2-1.0) mg/dL 0.3 AST (15-37) U/L 53 H ALT (14-59) U/L 30 Alkaline Phosphatase (46-116) U/L 96 Troponin I (<or=60) ng/L < 50 Total Protein (6.4-8.2) g/dL 8.0 Albumin (3.4-5.0) g/dL 3.4 Lipase (16-77) U/L 108 H Urine Color (Yellow) Yellow Urine Clarity (Clear) Clear Urine pH (5-8) 5.5 Ur Specific Ragley (1.005-1.025) 1.010 Urine Protein (Negative) mg/dL Negative Urine Ketones (Negative) mg/dL Negative Urine Blood (Negative) Negative Urine Nitrite (Negative) Negative Urine Bilirubin (Negative) Negative Urine Urobilinogen (Up to 0.2) mg/dL 0.2 Ur Leukocyte Esterase (Negative) Negative Urine Glucose (Negative) mg/dL Negative Sign Out <DOMINIC Rubin - Last Filed: 03/03/23 08:09> Sign Out Data: Sign Out Comment: pending admission for hypoglycemia, weakness Last updated by [place] Jones PA at 03/01/23 16:28
[2023-03-01] MEDS: Gadoterate meglumine 20 ML SYRINGE IVP (13:26)
[2023-03-01 13:28] LABS: Troponin I < 50 ng/L (<or=60)
--- NOTE | 2023-03-01 13:45 | DI.MRI_ITS ---
Exam(s) MR BRAIN WO/W EXAM: MR BRAIN WO/W CLINICAL HISTORY: right frontal mass, r deficit TECHNIQUE: Multiplanar multisequence MRI of the brain was performed. CONTRAST MATERIAL: IV Contrast: 20 mL of Dotarem contrast administered. COMPARISON: CT CT BRAIN NECK CTA from 03/01/2023 FINDINGS: VENTRICLES AND EXTRA AXIAL SPACES: Normal in size and morphology for the patient's age. HEMORRHAGE: None. CEREBRAL PARENCHYMA: No focus of restricted diffusion to suggest acute infarct. No space-occupying le markie identified. MIDLINE SHIFT: None. BRAINSTEM/CEREBELLUM: Normal. CALVARIUM: Normal. ENHANCEMENT: There is a 1.6 cc by 1.9 AP by 2.2 transverse cm extra-axial mass along the floor of the right anterior cranial fossa consistent with a meningioma. There is mild edema in the adjacent whit e matter of the right frontal lobe. No other enhancing lesions are identified. VISUALIZED PARANASAL SINUSES/MASTOIDS: Clear. [place] OF CARDONA: Normal flow void. PITUITARY GLAND: Unremarkable. OTHER FINDINGS: IMPRESSION: 1. No evidence of an acute infarct. 2. 1.6 x 1.9 x 2.2 cm homogeneously enhancing extra-axial mass along the floor of the right anterior cranial fossa consistent with a meningioma. There is mild edema in the adjacent white matter of the right frontal lobe. DATA REPOSITORY:
[2023-03-01] MEDS: Dextrose 50%-Water 25 GM/50 ML SYR (14:09)
[2023-03-01 20:04] VITALS: BP 156/70; PULSE 68; RESP 17; TEMP 36.4; O2SAT 98
--- NOTE | 2023-03-02 10:25 | PDOC.HHF2F_ITS ---
Home Health Referral Home Health Orders Clinical synopsis of why skilled professionals are needed: hypoglycemic episode Medical diagnosis necessitation home health referral: hypoglycemia, frequent falls Registered Nurse: Check all that apply Instruct on new or changed medication(s)/assess compliance: Ordered Assess for exacerbation of medical condition, instruct patient/caregivers on signs and symptoms to report for early detection: Ordered Physical Therapist: Check all that apply Increase strength & endurance for safe mobility at home: Ordered To design/establish home maintenance program: Ordered Fall reduction therapy program for patient with history of frequent falls: Or dered Home safety evaluation and teaching/gait training including stair management (if applicable): Ordered Occupational Therapist: Evaluate and treat for patient unable to perform ADL/IADL/self-care: Ordered Publicist: Assist with community resources: Ordered Assist with terminal makeup operator care planning: Ordered Home Bound Status Requires the aid of supportive device (check all that apply): Walker Describe why leaving home would require a considerable and taxing effort: Requires frequent rest periods Encounter Date and Reason: I certify that a FTF encounter for this patient was performed on March 02, 2023 and that such encounter was related to the primary reason the patient requires home health services. The encounter was conducted in the following manner: * By me as the certifying physician, STYLIST APPRENTICE, PA or * By an inpatient physician, STYLIST APPRENTICE or PA during an inpatient stay who communicated findings to me, Certification And Authentication I certify that I composed the above information based on my clinical judgment relating to this patient's medical condition and, if applicable, clinical findings communicated to me by the NPP or inpatient physician who performed the FTF encounter. Name of Provider that will be monitoring home health services: Jimmy Duval
== END 2023-03-01 20:28 | disposition home health service (06) ==
PROVIDERS: Physician Assistant; Emergency Provider Nurse Practitioner Acute Care; PCP Nurse Practitioner Family
DX: E16.2 Hypoglycemia, unspecified (principal)
CPT/HCPCS: 36415; 70496; 70498; 70553; 80053; 83690; 93005; 99285; 71046; 81003; 83036; 83735; 84484; 85025; 93010; 99284; J7042